=== PATIENT | male | born 1940 | race Caucasian/White ===

== ENCOUNTER → 2017-12-03 15:17 | Outpatient (CLI) | payer MEDICARE, SELFPAY ==
[2017-12-03 16:28] LABS: Add Manual Diff / Slide Review NO; Basophils Percent Auto 0.5 % (0-2); Hematocrit 39.7 % (41-53); Hemoglobin 13.4 g/dL (13.5-17.5); Lymphocytes Percent Auto 21.5 % (25-40); Mean Corpuscular HGB Conc 33.7 % (30-36); Mean Corpuscular Hemoglobin 28.9 PG (26-34); Mean Corpuscular Volume 85.7 fL (80-100); Monocytes Percent Auto 9.3 % (3-14); Neutrophils Absolute Auto 4500 /uL (3000-5900); Neutrophils Percent Auto 67.7 % (50-75); Platelet Count 293 X10^3/uL (150-400); Red Blood Cell Count 4.64 X10^6/uL (4.5-5.9); Red Cell Distribution Width 13.4 % (11.6-14.8); White Blood Cell Count 6.7 X10^3/uL (4.5-11.0)
[2017-12-03 16:40] LABS: Carbon Dioxide 28 mmol/L (22-32); Chloride 102 mmol/L (98-107); HEMOLYSIS < 15 (0-50); Potassium 4.6 mmol/L (3.4-5.1); Sodium 141 mmol/L (137-145)
== END ==
PROVIDERS: Family Provider Family Medicine; PCP Family Medicine; Visit Provider Orthopaedic Surgery
DX: M16.12 Unilateral primary osteoarthritis, left hip (principal); Z01.818 Encounter for other preprocedural examination; Z01.812 Encounter for preprocedural laboratory examination; I10 Essential (primary) hypertension
CPT/HCPCS: 36415; 80051; 85025; 93005; 93010

== ENCOUNTER 2017-12-17 08:03 | Inpatient (IN) | payer MEDICARE, SELFPAY ==
[2017-12-03 12:43] VITALS: BMI 26.9
[2017-12-17] VITALS (15 sets, daily range): BP systolic 109–163; BP diastolic 70–97; PULSE 70–93; RESP 12–20; TEMP 35.8–36.6; O2SAT 94–99; BMI 26.4
--- NOTE | 2017-12-17 06:00 | DI.RAD.S_ITS ---
PROCEDURE: XR PELVIS 1-2V INDICATIONS: prosthesis placement TECHNIQUE: Single view(s) of the pelvis acquired. COMPARISON: [facility] [place], [place], XR PELVIS WITH LATERAL HIP LEFT, 11/01/2017, 10:45. FINDINGS: Bones: Patient is status post interval left total hip arthroplasty. Alignment of left hip is anatomic. No fracture or dislocation is seen. Soft tissues: Skin pradeep are noted in lateral upper thigh/pelvis. No suspicious soft tissue lesion. IMPRESSION: Post left total hip arthroplasty changes with anatomic left hip alignment. Dictated by: Gregory Gordon M.D. on 12/17/2017 at 12:21 Approved by: rGegory Gordon M.D. on 12/17/2017 at 12:23
[2017-12-17] MEDS: ACETAMINOPHEN 325 MG TABLET 975 MG PO ×3 (08:37→21:07)
[2017-12-17] MEDS: CELECOXIB 200 MG CAPSULE PO (08:38)
[2017-12-17] MEDS: PREGABALIN 75 MG CAPSULE PO (08:38)
[2017-12-17] MEDS: LACTATED RINGERS 1,000 ML 42 ML IV ×2 (08:45→11:10)
--- NOTE | 2017-12-17 09:57 | PM.PREOP ---
Pre-operative Note Interval Note Pre-op Check: Yes History & Physical Reviewed by Physician Changes: No
[2017-12-17] MEDS: CEFAZOLIN 1 GM VIAL IV ×2 (10:00→10:40)
[2017-12-17] MEDS: TRANEXAMIC ACID 1,000 MG VIAL 1000 MG INJ ×2 (10:40→11:37)
[2017-12-17] MEDS: BUPIVACAINE 0.25% W/ EPI VIAL 50 ML INJ (10:50)
--- NOTE | 2017-12-17 11:02 | SUR.OPER ---
Lateral on padded OR bed. Gel axillary roll. Arms secured on padded armboard with pillow supporting top arm. Padded hip positioner braces x4 - anterior and posterior chest and pelvis. Additional gel pad used anterior pelvis. Gel pad under bottom leg from knee to foot and secured with tape over sheet.
--- NOTE | 2017-12-17 12:34 | SUR.PHASEI ---
reported patient off to Claudia RN/ Floor unable to take patient or report they will call back
--- NOTE | 2017-12-17 12:43 | SUR.PHASEI ---
report called to jessica Mike on acute care floor. pt in stable condition, vss. pt sititting up and eating ice chips and talking to rn. pt being transfered to acute care floor.
--- NOTE | 2017-12-17 14:15 | PM.OP.1 ---
Operative Date/Time/Diagnoses Date of procedure: 12/17/17 Time of procedure: 10:00 Pre-op diagnosis: Left hip degenerative joint disease Post-op diagnosis: same Procedure & Clinicians Procedure: Left total hip arthroplasty (CPT code 53710 with assistant head cashier) Same procedure as scheduled: Yes Indications: Patient is an 77-year-old male with severe left hip DJD. The patient has pain with activities and at rest, limited ambulation and activity tolerance, difficulties with ADLs, and failure of conservative treatment. We have discussed the nature of condition, treatment options, risks and benefits, and patient elects to proceed with total hip arthroplasty and gives informed consent. Surgeon: Krystian Rincon Program Arranger: Poly Levy Anesthesia Type: General and Spinal Operative Notes Closure Type: primary Specimen(s): none sent Implants & Drains: Acetabulum: Gu[employer]hew R3 acetabular component size 56 mm Femoral component: Gu[employer]hew Synergy stem size 14 with standard offset Femoral head: 36 mm + 0 cobalt chrome Estimated Blood Loss (mL): 100 Procedure in detail: After satisfaction induction of anesthetic, and administration of IV antibiotics, the patient was positioned in the lateral decubitus position with all bony prominences well padded and pelvic position secured using a hip rigging slinger positioning device. Left hip and lower extremity prepped and draped in the usual sterile fashion, 1st dose of intravenous tranexamic acid was administered, then a longitudinal incision was created centered over the greater trochanter and carried sharply through the skin and subcutaneous tissues down to the fascia gretchen which was divided longitudinally and retracted with a Charnley retractor. External rotators visualize, cut, tagged, and retracted posteriorly, then the capsule was cut in a T-type fashion with the corners tagged and retracted. Hip was dislocated and femoral neck cut made according to preoperative templating. Acetabular retractors then placed, and the acetabular labrum and osteophytes were excised. The acetabulum was then sequentially reamed to 55 mm with an excellent circumferential ream and fit with the trial. The trial component was removed and a permanent size 56 mm Guzman [employer]hew R3 acetabular component was selected, positioned, and impacted with satisfactory position and fixation achieved. Permanent liner was then inserted with the elevated lip directed posteriorly. Soft tissue then removed off the lateral femoral neck in the lateral neck was entered using a box osteotome. T-handled reamers placed down the canal followed by sequential broaching to 14 with the final broach left in place for trial reduction which demonstrated excellent leg length, range of motion, and stability characteristics with a 36 mm +0 trial ball. The trial and broach were removed, and a permanent size 14 Gu[employer]man [employer]hew Synergy stem was selected and inserted with excellent position and fixation achieved. Another trial reduction yielded the above characteristics so the trial ball was exchanged for a permanent 36 mm +0 cobalt chrome ball. The hip was irrigated and reduced and excellent leg length range of motion and stability characteristics were achieved and maintained. The hip was copiously irrigated, and the capsule repaired with #2 Ethibond, and the piriformis was repaired back to the greater trochanter with the same. Fascia gretchen closed with interrupted #1 Ethibond sutures, and the subcutaneous tissues were closed in 2 layers of 0 Vicryl and 2 0 Vicryl. Skin was closed with pradeep and sterile dressings applied. Second dose of tranexamic acid was administered intravenously, and the anesthetic was terminated. Complications: none Condition: stable Disposition: PACU Plan for aftercare: Patient will be admitted to the acute care [facility], and anticipate discharge on postop day 1 with follow-up in office in 10-14 days. Outpatient physical therapy will be arranged and patient will continue to observe posterior hip precautions. Patient will continue use of postoperative Lovenox for 10 days postop.
--- NOTE | 2017-12-17 14:19 | P.OP_ITS ---
Operative Date/Time/Diagnoses Date of procedure: 12/17/17 Time of procedure: 10:00 Pre-op diagnosis: Left hip degenerative joint disease Post-op diagnosis: same Procedure & Clinicians Procedure: Left total hip arthroplasty (CPT code 66423 with lead recreation assistant) Same procedure as scheduled: Yes Indications: Patient is an 77-year-old male with severe left hip DJD. The patient has pain with activities and at rest, limited ambulation and activity tolerance, difficulties with ADLs, and failure of conservative treatment. We have discussed the nature of condition, treatment options, risks and benefits, and patient elects to proceed with total hip arthroplasty and gives informed consent. Surgeon: Krystian Rincon Set Up Mechanic Coil Winding Machines: Poly Levy Anesthesia Type: General and Spinal Operative Notes Closure Type: primary Specimen(s): none sent Implants & Drains: Acetabulum: Gu[employer]hew R3 acetabular component size 56 mm Femoral component: Gu[employer]hew Synergy stem size 14 with standard offset Femoral head: 36 mm + 0 cobalt chrome Estimated Blood Loss (mL): 100 Procedure in detail: After satisfaction induction of anesthetic, and administration of IV antibiotics, the patient was positioned in the lateral decubitus position with all bony prominences well padded and pelvic position secured using a hip diving fisher positioning device. Left hip and lower extremity prepped and draped in the usual sterile fashion, 1st dose of intravenous tranexamic acid was administered, then a longitudinal incision was created centered over the greater trochanter and carried sharply through the skin and subcutaneous tissues down to the fascia gretchen which was divided longitudinally and retracted with a Charnley retractor. External rotators visualize, cut, tagged, and retracted posteriorly, then the capsule was cut in a T-type fashion with the corners tagged and retracted. Hip was dislocated and femoral neck cut made according to preoperative templating. Acetabular retractors then placed, and the acetabular labrum and osteophytes were excised. The acetabulum was then sequentially reamed to 55 mm with an excellent circumferential ream and fit with the trial. The trial component was removed and a permanent size 56 mm Guzman [employer] Nephew R3 acetabular component was selected, positioned, and impacted with satisfactory position and fixation achieved. Permanent liner was then inserted with the elevated lip directed posteriorly. Soft tissue then removed off the lateral femoral neck in the lateral neck was entered using a box osteotome. T-handled reamers placed down the canal followed by sequential broaching to 14 with the final broach left in place for trial reduction which demonstrated excellent leg length, range of motion, and stability characteristics with a 36 mm +0 trial ball. The trial and broach were removed, and a permanent size 14 Guzman [employer] Nephew Synergy stem was selected and inserted with excellent position and fixation achieved. Another trial reduction yielded the above characteristics so the trial ball was exchanged for a permanent 36 mm +0 cobalt chrome ball. The hip was irrigated and reduced and excellent leg length range of motion and stability characteristics were achieved and maintained. The hip was copiously irrigated, and the capsule repaired with # 2 Ethibond, and the piriformis was repaired back to the greater trochanter with the same. Fascia gretchen closed with interrupted #1 Ethibond sutures, and the subcutaneous tissues were closed in 2 layers of 0 Vicryl and 2 0 Vicryl. Skin was closed with pradeep and sterile dressings applied. Second dose of tranexamic acid was administered intravenously, and the anesthetic was terminated. Complications: none Condition: stable Disposition: PACU Plan for aftercare: Patient will be admitted to the acute care [facility], and anticipate discharge on postop day 1 with follow-up in office in 10-14 days. Outpatient physical therapy will be arranged and patient will continue to observe posterior hip precautions. Patient will continue use of postoperative Lovenox for 10 days postop.
[2017-12-17] MEDS: LACTATED RINGERS 1,000 ML 125 ML IV ×2 (14:25→21:08)
--- NOTE | 2017-12-17 15:43 | PC.NURSE ---
arrival pt arrived from PACU. denies pain. dressing is CDI. able to feel sensation on bilat feet however only able to wiggle toes on left foot, Right foot wouldn't move. pt started on juice and pudding and tolerated without issue. hourly rounding provided, call light within reach.
--- NOTE | 2017-12-17 17:09 | PT.IIE ---
Current Diagnoses Unilateral primary osteoarthritis, left hip (12/17/17) Surgery Performed Operation Date: 12/17/17 09:45 Actual Procedures p Total Hip Arthroplasty(Left) - Krystian Rincon MD Surgical History (Last Updated 12/03/17 @ 13:12 by Aminata Allen RN) History of vasectomy (Acute) Hx of hemorrhoidectomy (Acute) Hx of thumb surgery (Acute) Medical History (Last Updated 12/03/17 @ 13:12 by Aminata Allen RN) Elevated PSA (Acute) HTN (hypertension) (Acute) Hyperlipidemia (Acute) Numbness (Acute) Physical Therapy Inpatient Evaluation/Re-Eval M1 PT/OT-IP Prior Functional Status Start: 12/17/17 16:41 Freq: NEEDED Status: Active Protocol: Document 12/17/17 16:42 EA (Rec: 12/17/17 17:09 EA [id number]) Medical Review Prior Functional Status Medical History Reviewed Yes Communication Normal Mobility and Gait Able to ambulate 1/2 mile with STC to right hand indep. Activities of Daily Living and IADL's Indepedent Social History Household Members spouse Living Arrangements House Number of Floors (Floors) One Floor Number of Stairs To Enter/Railing? 2 steps to get in the house with rails to both sides Home Environment High Toilet Home Equipment Front Wheel Walker Straight Cane Raised Toilet Seat Without Armrests Employment Status Retired M2 PT-IP Current Condition Start: 12/17/17 16:41 Freq: NEEDED Status: Active Protocol: Document 12/17/17 16:42 EA (Rec: 12/17/17 17:09 EA [id number]) Physical Therapy Current Condition Current Condition Evaluation Date 12/17/17 Treatment Diagnosis S/P L SHERWIN 12/17/17 Onset Date 12/17/17 Precautions Posterior Hip Precautions No Hip Flexion > 90 degrees No Hip Internal Rotation No Hip Adduction Weight Bearing Status Weight Bearing Status Weight Bear as Tolerated M3 PT-IP Subjective Start: 12/17/17 16:41 Freq: NEEDED Status: Active Protocol: Document 12/17/17 16:42 EA (Rec: 12/17/17 17:09 EA [id number]) Subjective Physical Therapy Visit Type Type Initial Evaluation Visit Start Time 15:45 Visit Stop Time 16:30 Total Visit Minutes 45 Physical Therapy Visit Comments Patient Comments Patient agreeable to try chair transfers. Short Term Goals Wants to get indep prior to discharge tomorrow. Therapy Pain Assessment Pain When Pain Assessed At Rest Pain Present Pain Present Pain Reported Location Left Hip Scale Used Numeric (1 - 10) Description Acute Pain Behaviors Wincing Pain Management Techniques Apply Cold M4 PT-IP Mobility and Gait Start: 12/17/17 16:41 Freq: NEEDED Status: Active Protocol: Document 12/17/17 16:42 EA (Rec: 12/17/17 17:09 EA [id number]) PT-Bed Mobility Assessment Rolling Level of Assist Standby Assistance Supine to Sit Supine to Sit Standby Assistance Sit to Supine Sit to Supine Standby Assistance Scooting Scooting to Edge of Bed Standby Assistance PT-Transfer Assessment Sit to and From Stand Sit to and from Stand Contact Guard Assistance Equipment Transfer Assistive Device Front Wheeled Walker Transfers Transfer Destination Bed Chair Bedside Commode Transfer Technique stepping Transfer Ability Level of Assist Contact Guard Assistance Gait Assessment Gait Gait Assistance Required: Standby Assistance Able to Maintain Weight Bearing Status Yes During Gait Assistive Devices Assistive Device Front Wheeled Walker Gait Deviations General Gait Pattern Antalgic Factors Limiting Gait Function Factors Limiting Gait Function Decreased Strength Pain Comments Gait Comments Requires cues for foot placement during turning. Patient able to amb > 10 ft with FWW with SBA/CGA PT-Balance Assessment Sitting Balance and Reactions Static Sitting Balance Ability Normal Dynamic Sitting Balance Ability Normal Standing Balance and Reactions Static Standing Balance Ability Good Dynamic Standing Balance Ability Good M5 PT-IP Objective Assessments Start: 12/17/17 16:41 Freq: NEEDED Status: Active Protocol: Document 12/17/17 16:42 EA (Rec: 12/17/17 17:09 EA [id number]) Orientation Orientation/Cognition Level of Alertness Alert Orientation Name Birthday Month Year Day of Week Language Function Ability No Deficits Noted Safety Awareness Understands Safety Issues Memory Description No Deficits Noted Gross Range of Motion Upper Extremity ROM Assessment Within Functional Limits Lower Extremity ROM Assessment Within Functional Limits Impairments Left hip not assess due to hip pre-cautions Strength Upper Extremity Strength Assessment Within Functional Limits Lower Extremity Strength Assessment Within Functional Limits Hip Not tested due to precaution but with at least 3/5 Coordination Assessment Gross Coordination Gross Coordination WNL Assessment Finger to Nose Test Normal Performance Pronation/Supination Test Normal Performance Foot Tapping Test Normal Performance Sensation Assessment Sensation Gross Sensation WNL M6 PT-IP Treatment Start: 12/17/17 16:41 Freq: NEEDED Status: Active Protocol: Document 12/17/17 16:42 EA (Rec: 12/17/17 17:09 EA [id number]) Physical Therapy Treatment Exercises Exercises Ankle Pumps Gluteal Sets Quad Sets Heel Slides Supine Hip Abduction Education Education Provided Precautions Weight Bearing Status Post-Op Packet Safety M7 PT-IP Assessment and Plan Start: 12/17/17 16:41 Freq: NEEDED Status: Active Protocol: Document 12/17/17 16:42 EA (Rec: 12/17/17 17:09 EA [id number]) PT Summary Assessment and Plan Potential Rehabilitation Potential Excellent Status of Condition at Evaluation Stable Summary Impairments Pain Strength Bed Mobility Transfers Gait Activity Tolerance Assessment Summary Patient exhibits decreased activity tolerance which maybe due to pain and LLE weakness, however demonstrates good dynamic balance. Patient requires CGA/standby assist during transfers and mobility for safety at this time. Patient to perform distance amb and stairs practice prior discharge tomorrow or when medically stable. Goals Bed Mobility Goal Independent Transfer Goal Independent Gait Goal Independent Gait Distance 50 ft Days to Meet Goals 1 Frequency of Treatment Frequency Of Treatment Once a Day Treatment Plan Physical Therapy Treatment Plan Bed Mobility Training Transfer Training Gait Training Therapeutic Exercise Post Op Education Discharge Planning Recommendations To Nursing Amount of Assist Needed Standby Assistance Discharge Recommendations PT Discharge Recommendations Home with Assistance Other Discharge Recommendations OP Physical therapy
[2017-12-17] MEDS: ASPIRIN EC 81 MG TABLET PO (21:07)
--- NOTE | 2017-12-18 01:26 | PC.NURSE ---
Pt. reporting ' I've been getting up almost every 15 mins. to urinate. Denies any nausea & drinking his water, VSS. Stopped IVF & saline locked IV. Will monitor.
[2017-12-18] MEDS: HYDROCODONE/ACET 5/325 TABLET 1 TAB PO ×3 (04:55→20:27)
[2017-12-18 05:05] VITALS: BP 161/93; PULSE 88; RESP 18; TEMP 36.8; O2SAT 97
[2017-12-18 05:19] LABS: Hematocrit 36.1 % (41-53); Hemoglobin 12.4 g/dL (13.5-17.5)
--- NOTE | 2017-12-18 06:53 | PC.NURSE ---
Pt. reported my Rt. hip is not that painful, but it's hurts really bad to urinate. Noted earlier he already voided 800 cc since beginning this shift. Bladder scanned noted 472 ml. in the bladder. Encouraged to urinate, he ambulated in the BR. did well ambulating to the BR. He's sitting in the toilet @ this time. Will monitor.
[2017-12-18 07:25] VITALS: BP 155/105; PULSE 91; RESP 16; TEMP 36.7; O2SAT 98
--- NOTE | 2017-12-18 07:29 | PC.NURSE ---
Reported to day RN,pt C/O painful urination & was able to void this morning. Bladder scanned 472 cc. Day RN states I'll take care of him. pt. informed.
--- NOTE | 2017-12-18 09:10 | CM.DANOTE ---
DCP: Case received, EMR reviewed and met with patient. Introduced self and role. DCP template completed with information currently available. Patient is a 77 year old male who admitted yesterday morning to the care of the hospitalist team. PCP: Dr. Krishna. Payer: confirmed: Medicare/[employer]. Patient came to hospital for left total hip arthroplasty. Patient pleasant, alert and oriented. Lives in [place] with his spouse in [place]. Patient has been active, avid walker with friends. Patient also has outpatient physical therapy already set up here in town. P: DCP to continue to assess. Goal is for patient to go home with outpatient physical therapy. Yaa Osullivan RN/Asbestos Removal Worker
[2017-12-18] MEDS: ENOXAPARIN 40 MG/0.4 ML SYRINGE SUBCUT (09:30)
[2017-12-18] MEDS: ASPIRIN EC 81 MG TABLET PO ×2 (09:30→20:27)
[2017-12-18] MEDS: ACETAMINOPHEN 325 MG TABLET 975 MG PO ×2 (09:30→20:28)
[2017-12-18] MEDS: SODIUM CHLORIDE 0.9% FLUSH 10 ML IV ×2 (09:31→20:29)
[2017-12-18] MEDS: FINASTERIDE 5 MG TABLET PO (11:08)
--- NOTE | 2017-12-18 13:14 | PM.PN.1 ---
Subjective Date Patient Seen: 12/18/17 Time Patient Seen: 11:14 Interval history: Patient is status post left total hip replacement by Dr. Rinocn. Postop day 1. Nursing duties states that he is having difficulty urinating and he was straight catheterized with about 400 cc. He was able to urinate this morning about 100 cc. He is going to have a bladder scan this morning to see if there is any residual urine. Home med of finasteride was not ordered. Only taking hydrocodone as needed for pain. Is a [facility] patient and has his d/c meds already except for Lovenox. Eating and drinking well. Plan is to be discharged home when cleared by Physical therapy and able to urinate. Exam Vital Signs (past 8 hours): - 12/18/17 07:25 Temperature 98.1 F Pulse Rate 91 H Respiratory Rate 16 Blood Pressure 155/105 H Pulse Oximetry 98 Oxygen Delivery Method Room Air Narrative Exam Narrative: Patient is sitting in chair. Comfortable. Alert orient x3. Left hip dressing clean dry and intact. Moderate swelling left anterior thigh. Bilateral calves soft and nontender. 5/5 left ankle strength. Neurovascular status intact. Objective Labs Result Diagrams: 12/18/17 04:54 Labs: Laboratory Results - last 24 hr 12/18/17 04:54 Hgb 12.4 L Hct 36.1 L Assessment & Plan (1) Osteoarthritis of left hip: Problem details: Postop day 1. Status post left total hip arthroplasty by Dr. Rincon. Continue physical therapy. Continue posterior hip precautions. Continue DVT prophylaxis with Lovenox. Anticipate discharge home tomorrow if his urinary retention resolved. Current visit: Yes Status: Acute (2) Urinary retention: Problem details: Bladder scan revealed about 400 cc of fluid. Patient will be catheterized. Home med of finasteride ordered. Current visit: Yes Status: Acute Quality VTE Deep Vein Thrombosis/Pulmonary Embolism Present on Admission: No
[2017-12-18 14:05] VITALS: BP 131/76; PULSE 97; RESP 16; TEMP 36.6; O2SAT 97
--- NOTE | 2017-12-18 14:14 | CM.DPC ---
DCP Cont: Patient remains NPO status with NG tube in place. Surgeon is hopeful that bowel obstruction will resolve without surgery, but if not, may need laparotomy, as well as PICC line for TPN. P: DCP to continue to assess. Goal is for patient to return home. Yaa Osullivan RN/Dance Professor
--- NOTE | 2017-12-18 14:48 | PC.NURSE ---
day shift. per NOC shift, bladder scan of ~470 ml. order to straight cath pt if >400. in and out cath for pt and obtained ~1000ml of giovanny urine. pt stated he felt better after cath. was able to urinate several times throughout remainder of shift, all around 100 ml each time. bladder scan 2x during shift for PVR and first was 560ml. second was 314 ml. pt never felt uncomfortable or had pain r/t to urination like in AM. Did not insert cabrera as pt was able to urinate, just not empty his bladder. Attempted to contact PA, awaiting call back. dressing changed to coversite dressing per order. hourly rounding provided, call light within reach.
[2017-12-18 15:39] VITALS: BP 122/73; PULSE 92; RESP 18; TEMP 36.6; O2SAT 97
--- NOTE | 2017-12-18 15:45 | PT.IPTN ---
Current Diagnoses Unilateral primary osteoarthritis, left hip (12/17/17) Retention of urine, unspecified (12/17/17) Surgery Performed Operation Date: 12/17/17 09:45 Actual Procedures p Total Hip Arthroplasty(Left) - Krystian Rincon MD Physical Therapy Treatment Note Physical Therapy Current Condition Current Condition Evaluation Date 12/17/17 Treatment Diagnosis S/P L SHERWIN 12/17/17 Onset Date 12/17/17 Precautions Posterior Hip Precautions No Hip Flexion > 90 degrees No Hip Internal Rotation No Hip Adduction Weight Bearing Status Weight Bearing Status Weight Bear as Tolerated Subjective Physical Therapy Visit Type Type Treatment Note Visit Start Time 13:58 Visit Stop Time 14:41 Total Visit Minutes 43 Physical Therapy Visit Comments Patient Comments Pt reports feeling really good , but wants to wait until tomorrow to go home do to urinary concerns. Therapy Pain Assessment Pain Present Pain Present Denied Pain PT-Transfer Assessment Sit to and From Stand Sit to and from Stand Standby Assistance Equipment Transfer Assistive Device Front Wheeled Walker Transfers Transfer Destination Chair Wheelchair Transfer Technique stepping Transfer Ability Level of Assist Standby Assistance Gait Assessment Gait Gait Assistance Required: Standby Assistance Distance (Feet) (feet) 200 Assistive Devices Assistive Device Front Wheeled Walker Gait Deviations General Gait Pattern Antalgic Comments Gait Comments Initially pt using step-to gait pattern, but with cues pt able to utilize a reciprocal pattern. Still antalgic. Pt lands quite supinated on the R foot, but this is normal for him. No LOB or instability observed. Stair Climbing Assessment Evaluation Level of Assist On Stairs Standby Assistance Devices Stair Climbing Assistive Devices Left Railing Right Railing Technique/Endurance Stair Climbing Direction Ascend and Descend Stair Climbing Technique Step to Step Number of Steps Climbed 3 Query Text: Comments Stair Climbing Comments quite stable, no concerns PT-Balance Assessment Standing Balance and Reactions Device Used FWW Orientation Orientation/Cognition Level of Alertness Alert Orientation Name Birthday Month Year Day of Week Language Function Ability No Deficits Noted Safety Awareness Understands Safety Issues Memory Description No Deficits Noted Gross Range of Motion Upper Extremity ROM Assessment Within Functional Limits Lower Extremity ROM Assessment Within Functional Limits Impairments Left hip not assess due to hip pre-cautions Strength Upper Extremity Strength Assessment Within Functional Limits Lower Extremity Strength Assessment Within Functional Limits Hip Not tested due to precaution but with at least 3/5 Coordination Assessment Gross Coordination Gross Coordination WNL Assessment Finger to Nose Test Normal Performance Pronation/Supination Test Normal Performance Foot Tapping Test Normal Performance Sensation Assessment Sensation Gross Sensation WNL Physical Therapy Treatment Exercises Exercises Ankle Pumps Gluteal Sets Quad Sets Heel Slides Supine Hip Abduction Education Education Provided Precautions Weight Bearing Status Post-Op Packet Safety PT Summary Assessment and Plan Potential Rehabilitation Potential Excellent Status of Condition at Evaluation Stable Summary Impairments Pain Strength Bed Mobility Transfers Gait Activity Tolerance Progress Towards Goals Progressing Toward Goals Assessment Summary Pt is POD#1 after L posterior SHERWIN. Pt is SBA (almost mod ind ) with all mobility. Pt would be ready to discharge today from a mobility standpoint but will be staying until tomorrow for medical reasons. Pt is a little impulsive with movement but very stable without any LOB. Pt is safe to discharge home once medically ready with outpatient PT. Goals Bed Mobility Goal Independent Transfer Goal Independent Gait Goal Independent Gait Distance 50 ft Days to Meet Goals 1 Frequency of Treatment Frequency Of Treatment Twice a Day Treatment Plan Physical Therapy Treatment Plan Bed Mobility Training Transfer Training Gait Training Therapeutic Exercise Post Op Education Discharge Planning Recommendations To Nursing Amount of Assist Needed Standby Assistance Discharge Recommendations PT Discharge Recommendations Home with Assistance Outpatient PT
[2017-12-18 19:47] VITALS: BP 145/79; PULSE 96; RESP 18; TEMP 37.1; O2SAT 97
[2017-12-18 23:00] VITALS: BP 152/83; PULSE 79; RESP 16; TEMP 36.4; O2SAT 97
[2017-12-19] MEDS: HYDROCODONE/ACET 5/325 TABLET 1 TAB PO ×3 (01:02→10:03)
[2017-12-19 06:06] VITALS: BP 155/61; PULSE 75; RESP 16; TEMP 36.6; O2SAT 98
[2017-12-19 07:00] VITALS: BP 134/84; PULSE 76; RESP 16; TEMP 36.6; O2SAT 98
--- NOTE | 2017-12-19 08:10 | P.DS_ITS ---
History of Present Illness Date Patient Seen: 12/19/17 Time Patient Seen: 08:03 Chief complaint: [id number] LEFT TOTAL HIP ARTHROPLASTY Narrative: Details of the patient's H&P can be found in the electronic chart. Discharge Providers Date of admission: 12/17/17 08:03 Primary care physician: Tito Krishna MD Consults: 12/17/17 13:33 Consult to Discharge Planning Routine Comment: Consult to Physical Therapy Evaluate & Treat Comment: Physician Instructions: post op SHERWIN protocol Consult to Respiratory Therapy Evaluate & Treat Comment: Physician Instructions: Evaluate and treat Discharge provider: Shirley Ferguson PA-C Summary Discharge Diagnosis: Left hip osteoarthritis Urinary retention Hospital Course: Patient was admitted and taken operating room where had a left total hip arthroplasty by Dr. Rincon. He recovered well and was transferred to the floor for further care. Postop day 1 patient was having problems with urination and had a in/out catheter. A bladder scan showed about 400cc fluid and a catheter was placed and his home medication of finasteride was ordered. He has a history of benign prostatic hypertrophy. By postop day 2. His Agustin was removed and he was urinating without difficulty. He was also ambulating well and pain was under control. He was ready to be discharged home. He is a [facility] patient and has his post op pain meidcation already, [place] 5 mg. He will be given a prescription for Lovenox 40 mg her to take for 8 days. Outpatient physical therapy has been set up as scheduled or [facility] on 20 history. He will follow up in the office in a few days for his 1st postop visit. Status at Discharge Cognitive/behavioral status at discharge: Alert and orient times Functional status at discharge: uses cane/walker Overall status at discharge: patient is progressing back to baseline Time Spent with Patient Less than 30 minutes Exam Vital Signs (past 8 hours): - 12/19/17 06:06 Temperature 97.9 F Pulse Rate 75 Respiratory Rate 16 Blood Pressure 155/61 H Pulse Oximetry 98 Oxygen Delivery Method Room Air Narrative Exam Narrative: Patient in bed. Appears comfortable. Alert and orient x3. Left hip dressing clean dry intact. Moderate swelling in the left thigh. Bilateral calves soft and nontender. 5/5 left ankle strength. Neurovascular status intact. Objective Labs Result Diagrams: 12/18/17 04:54 Discharge Plan Discharge Plan Patient Disposition: Home Discharge comment: Start physical therapy as soon as possible. Take Lovenox daily for 8 days then start aspirin 81 mg daily. Not take more than 4000 mg of Tylenol per day from all sources. Discharge Med Rec/Prescriptions Prescriptions: New acetaminophen 325 mg Tablet 650 mg PO DAILY Qty: 60 RF: 0 hydrocodone-acetaminophen 5-325 mg Tablet 1 tab PO Q4HR PRN (Reason: Pain, Moderate (4-6)) Qty: 60 RF: 0 enoxaparin [Lovenox] 40 mg/0.4 mL Syringe 40 mg subcut DAILY 8 Days RF: 0 Continue atorvastatin 40 mg Tablet 40 mg PO BEDTIME RF: 0 finasteride 5 mg Tablet 5 mg PO QAM RF: 0 Discontinued naproxen sodium [Aleve] 220 mg Capsule 440 mg PO BID RF: 0 Follow up/Referrals: Tito Krishna MD [Primary Care Provider] - Krystian Rincon MD [Physician] - (Follow-up at scheduled visit. Contact office with any issues or concerns.) Provider Discharge Instructions Diet: Diet as Tolerated Activity: Activity as tolerated. Posterior hip precautions. Ambulate with assistance of a walker/cane. Cold/Heat Therapy: Apply ice to the extremity as needed for inflammation and pain. Skin/Wound/Dressing Care Report to your healthcare provider any signs of infection, such as:: chills, fever, increased pain and unusual drainage Dressing: Keep dressing clean, dry and intact. Visit Report/Discharge Packet Instructions: DI for Hip Replacement, DI for Constipation, Enoxaparin Injection Visit Report Forms: Stroke Signs & Symptoms Discharge Data Primary Care Provider: Tito Krishna Attending Provider: Krystian Rincon Admit Date/Time: 12/17/17 08:03 Quality VTE Deep Vein Thrombosis/Pulmonary Embolism Present on Admission: No
--- NOTE | 2017-12-19 09:25 | PT.IPTN ---
Current Diagnoses Unilateral primary osteoarthritis, left hip (12/17/17) Retention of urine, unspecified (12/17/17) Surgery Performed Operation Date: 12/17/17 09:45 Actual Procedures p Total Hip Arthroplasty(Left) - Krystian Rincon MD Physical Therapy Treatment Note M2 PT-IP Current Condition Start: 12/17/17 16:41 Freq: NEEDED Status: Active Protocol: Document 12/17/17 16:42 EA (Rec: 12/17/17 17:09 EA [id number]) Physical Therapy Current Condition Current Condition Evaluation Date 12/17/17 Treatment Diagnosis S/P L SHERWIN 12/17/17 Onset Date 12/17/17 Precautions Posterior Hip Precautions No Hip Flexion > 90 degrees No Hip Internal Rotation No Hip Adduction Weight Bearing Status Weight Bearing Status Weight Bear as Tolerated M3 PT-IP Subjective Start: 12/17/17 16:41 Freq: NEEDED Status: Active Protocol: Document 12/19/17 09:25 GGD (Rec: 12/19/17 12:21 GGD [id number]) Subjective Physical Therapy Visit Type Type Treatment Note Visit Start Time 08:55 Visit Stop Time 09:25 Total Visit Minutes 30 Physical Therapy Visit Comments Patient Comments Pt states he feels ready to go home. Therapy Pain Assessment Pain When Pain Assessed At Rest Pain Present Pain Present Denied Pain M4 PT-IP Mobility and Gait Start: 12/17/17 16:41 Freq: NEEDED Status: Active Protocol: Document 12/19/17 09:25 GGD (Rec: 12/19/17 12:21 GGD [id number]) PT-Transfer Assessment Sit to and From Stand Sit to and from Stand Standby Assistance Use of Upper Extremities Equipment Transfer Assistive Device Front Wheeled Walker Transfers Transfer Destination Chair Gait Assessment Gait Gait Assistance Required: Standby Assistance Distance (Feet) (feet) 220 Assistive Devices Assistive Device Front Wheeled Walker Gait Deviations General Gait Pattern Antalgic Factors Limiting Gait Function Factors Limiting Gait Function Decreased Strength Limited Range of Motion Pain M5 PT-IP Objective Assessments Start: 12/17/17 16:41 Freq: NEEDED Status: Active Protocol: Document 12/17/17 16:42 EA (Rec: 12/17/17 17:09 EA [id number]) Orientation Orientation/Cognition Level of Alertness Alert Orientation Name Birthday Month Year Day of Week Language Function Ability No Deficits Noted Safety Awareness Understands Safety Issues Memory Description No Deficits Noted Gross Range of Motion Upper Extremity ROM Assessment Within Functional Limits Lower Extremity ROM Assessment Within Functional Limits Impairments Left hip not assess due to hip pre-cautions Strength Upper Extremity Strength Assessment Within Functional Limits Lower Extremity Strength Assessment Within Functional Limits Hip Not tested due to precaution but with at least 3/5 Coordination Assessment Gross Coordination Gross Coordination WNL Assessment Finger to Nose Test Normal Performance Pronation/Supination Test Normal Performance Foot Tapping Test Normal Performance Sensation Assessment Sensation Gross Sensation WNL M6 PT-IP Treatment Start: 12/17/17 16:41 Freq: NEEDED Status: Active Protocol: Document 12/19/17 09:25 GGD (Rec: 12/19/17 12:21 GGD [id number]) Physical Therapy Treatment Exercises Exercises Ankle Pumps Gluteal Sets Quad Sets Education Education Provided Precautions M7 PT-IP Assessment and Plan Start: 12/17/17 16:41 Freq: NEEDED Status: Active Protocol: Document 12/19/17 09:25 GGD (Rec: 12/19/17 12:21 GGD [id number]) PT Summary Assessment and Plan Summary Assessment Summary Pt improving with mobility. He was safe and stable with no LOB during gait. He demonstrated good understanding of hip precaurtions. Frequency of Treatment Frequency Of Treatment Twice a Day Treatment Plan Physical Therapy Treatment Plan Bed Mobility Training Transfer Training Gait Training Therapeutic Exercise Post Op Education Discharge Planning Recommendations To Nursing Amount of Assist Needed Standby Assistance Discharge Recommendations PT Discharge Recommendations Home with Assistance Outpatient PT
[2017-12-19] MEDS: ACETAMINOPHEN 325 MG TABLET 975 MG PO (10:02)
[2017-12-19] MEDS: ASPIRIN EC 81 MG TABLET PO (10:03)
[2017-12-19] MEDS: ENOXAPARIN 40 MG/0.4 ML SYRINGE SUBCUT (10:03)
[2017-12-19] MEDS: FINASTERIDE 5 MG TABLET PO (10:03)
--- NOTE | 2017-12-19 12:48 | PC.NURSE ---
Discharge: Feels ready to d/c home today. Po pain meds effective and already has rx at home. Lovenox teaching given. Pt injected his lovenox using correct tech. Discussed site rotation and sharps disposal. Questions answered. Spouse also had lovenox after her surgery's and she is able to help pt in case he needs some. PT here to see patient and they have given him their final instructions. PA here and she reviewed discharge information as well with patient. Questions answered. Pt d/c home via auto w/spouse.
== END 2017-12-19 10:30 | disposition home or self-care (01) | DRG 470 ==
PROVIDERS: Admitting Provider Orthopaedic Surgery; Family Provider Family Medicine; PCP Family Medicine; Visit Provider Orthopaedic Surgery
PROC: 0SRB0JZ Replacement of Left Hip Joint with Synthetic Substitute, Open Approach (ICD-10-PCS; CPT 27130; principal; 2017-12-17 09:45)
DX: M16.12 Unilateral primary osteoarthritis, left hip (principal); E78.5 Hyperlipidemia, unspecified; R33.9 Retention of urine, unspecified; N40.1 Benign prostatic hyperplasia with lower urinary tract symptoms
CPT/HCPCS: 36415; 72170; 85014; 85018; 97116; 97161; 97530; 97535; C1776; J0690; J1650; J2250; J2704; J3010

== ENCOUNTER → 2018-05-20 12:39 | Outpatient (CLI) | payer MEDICARE, SELFPAY ==
[2017-12-17 14:11] VITALS: BMI 26.4
--- NOTE | 2018-05-20 | DI.RAD.S_ITS ---
PROCEDURE: XR CHEST 2V INDICATIONS: COUGH TECHNIQUE: 2 views of the chest were acquired. COMPARISON: None. FINDINGS: Surgical changes and devices: None. Lungs and pleura: Lungs are clear. No pleural effusions or pneumothorax. Mediastinum: Mediastinal contours are normal. Heart size is normal. Bones and chest wall: No suspicious bony abnormalities. Soft tissues appear unremarkable. IMPRESSION: Normal for age, source of current cough symptoms is not seen. Dictated by: Clarke Mercedes M.D. on 05/20/2018 at 13:43 Approved by: Clarke Mercedes M.D. on 05/20/2018 at 13:44
== END ==
PROVIDERS: Family Provider Family Medicine; PCP Family Medicine; Visit Provider Family Medicine
DX: R05 Cough (principal)
CPT/HCPCS: 71046

== ENCOUNTER 2020-10-29 11:54 | Emergency (ER) | payer MEDICARE, SELFPAY ==
[2017-12-17 14:11] VITALS: BMI 26.4
[2020-10-29 11:57] VITALS: BP 180/86; PULSE 67; RESP 14; TEMP 36.6; O2SAT 97; BMI 26.6
--- NOTE | 2020-10-29 11:59 | DI.RAD.S_ITS ---
PROCEDURE: XR WRIST RT MIN 3V INDICATIONS: wrist injury TECHNIQUE: 4 views of the wrist were acquired. COMPARISON: None. FINDINGS: Bones: There is a comminuted intra-articular fracture distal radius with mild posterior angulation and displacement. Scaphoid view: No visualized scaphoid fracture. Soft tissues: No suspicious soft tissue calcifications. IMPRESSION: Comminuted intra-articular distal radial fracture as above. Dictated by: Flora Gupta M.D. on 10/29/2020 at 12:23 Approved by: Flora Gupta M.D. on 10/29/2020 at 12:24
--- NOTE | 2020-10-29 13:15 | ED.UPPEXIN ---
HPI - Extremity Injury (Upper) General Chief Complaint: Extremity Injury, Upper Stated Complaint: fall/right wrist fracture Time Seen by Provider: 10/29/20 13:11 Source: patient Mode of arrival: Ambulatory Limitations: no limitations History of Present Illness HPI narrative: 79M nonsmoker with noncontributory medical history presents with is and the chief complaint of a ground level mechanical fall just prior to arrival with right wrist pain and injury. He is activated as a modified trauma given his age greater than 65 and suspected injury. He denies any head neck or back pain. He denies any shoulder or elbow pain. He denies any numbness, tingling or weakness. He states that he was pulling a garbage can and got his feet caught up on the curb and fell onto an outstretched wrist suffering the injury as stated. He denies any chest pain or shortness of breath or any other prodromal symptoms. He is right-hand dominant Related Data Home Medications Medication Instructions Recorded Confirmed finasteride 5 mg tablet 5 mg PO QAM 12/03/17 03/31/20 pravastatin 40 mg tablet 40 mg PO BEDTIME 03/31/20 03/31/20 Previous Rx's Medication Instructions Recorded acetaminophen 325 mg tablet 650 mg PO DAILY #60 tab 12/18/17 Allergies Allergy/AdvReac Type Severity Reaction Status Date / Time No Known Drug Allergies Allergy Verified 10/29/20 11:57 Review of Systems Review of Systems Narrative: GENERAL: Denies chills, fatigue, malaise, fever, sweats. HEENT: Denies sinus pain, ear pain, sore throat, difficulty swallowing, dizziness. RESPIRATORY: Denies dyspnea, cough, wheezing, hemoptysis, sputum. CARDIOVASCULAR: Denies chest pain, palpitations, orthopnea, edema, GASTROINTESTINAL: Denies nausea, vomiting, abdominal pain, diarrhea, constipation, melena. : Denies dysuria, frequency, incontinence, hematuria, urinary retention. MUSCULOSKELETAL: See HPI SKIN: Denies rash, skin lesions, or other NEUROLOGIC: Denies weakness, headache, numbness, change in speech, confusion, seizures, incoordination. PSYCHIATRIC: No concerning psychosocial issues. 12 point review of systems is negative except for those stated above Patient History Medical History Bleeding external hemorrhoids Elevated PSA HTN (hypertension) Hyperlipidemia Numbness Osteoarthritis of left hip Urinary retention Surgical History History of vasectomy Hx of hemorrhoidectomy Hx of thumb surgery Family History Father CAD (coronary artery disease) Social History household members: spouse Smoking Status: Never smoker alcohol intake: current Smoking Status: Never smoker alcohol intake frequency: holidays/special occasions only Substance Use Type: does not use Exam Narrative Exam Narrative: GEN: AOx3 and in mild distress, GCS 15 EYES: Pupils are equal, round, and reactive to light and accommodation. Extraoccular muscles are intact bilaterally. There is no subconjunctival hemorrhage or exudate. CHEST: Lungs are clear to auscultation bilaterally and free of wheezes, rales, or rhonchi. Heart rate is regular rhythm, there are no murmurs, clicks, rubs, or gallops. There is no chest wall tenderness. ABD: Abdomen is soft and nontender. There is no guarding or rebound. Bowel sounds are normal in all 4 quadrants. There is no mass or organomegaly. EXT: Full painless range of motion of right shoulder and elbow. There is minimal swelling and tenderness to palpation of the distal radius and decreased range of motion associated with this pain. This is closed, isolated and neurovascularly intact SKIN: Warm, pink, and dry. No erythema or rash Initial Vital Signs Initial Vital Signs: Vital Signs Temperature 97.8 F 10/29/20 11:57 Pulse Rate 67 10/29/20 11:57 Respiratory Rate 14 10/29/20 11:57 Blood Pressure 180/86 H 10/29/20 11:57 Pulse Oximetry 97 10/29/20 11:57 Procedures Orthopedic Splinting/Casting Injury #1: Time of procedure: 13:28 Side: right Upper Extremity Injury Location: wrist Upper Extremity Immobilizer: sling/shoulder immobilizer and sugar tong splint Course Orders Ordered: ED Orders 10/29/20 11:59 XR wrist RT min 3V Stat Vital Signs Vital signs: Vital Signs - 8 hr 10/29/20 11:57 Temperature 97.8 F Pulse Rate 67 Respiratory Rate 14 Blood Pressure 180/86 H Pulse Oximetry 97 MDM - Extremity Injury (Upper) Imaging Data Extremity x-ray #1: Radiologist's Impression: Maynor Barnes 79 M [address] [id number] ReportSigned Patient: Maynor Barnes GMR#: [id number]: 1940cct:[id number]/Sex: 79 / MDate of Service: 10/29/20Loc: EDAccession Number: [id number] Procedure: XR wrist RT min 3V Ordering Provider: Krysten Melendrez D.O. PROCEDURE: XR WRIST RT MIN 3V INDICATIONS: wrist injury TECHNIQUE: 4 views of the wrist were acquired. COMPARISON: None. FINDINGS: Bones: There is a comminuted intra-articular fracture distal radius with mild posterior angulation and displacement. Scaphoid view: No visualized scaphoid fracture. Soft tissues: No suspicious soft tissue calcifications. IMPRESSION: Comminuted intra-articular distal radial fracture as above. Dictated by: Flora Gupta M.D. on 10/29/2020 at 12:23 Approved by: Flora Gupta M.D. on 10/29/2020 at 12:24 [facility] Narrative Medical decision making narrative: Patient with ground level mechanical fall and isolated orthopedic injury. There is comminution and minimal angulation, we did have a discussion about the potential gains from procedural sedation and attempt at reduction and sure the opinion that little is likely to be gained. He has been given return precautions regarding signs and symptoms that would dictate return. He and event questions answered to their apparent satisfaction. Discharge Plan Departure Patient Disposition: Home Clinical Impression: Distal radius fracture, right Qualifiers: Encounter type: initial encounter Fracture type: closed Fracture morphology: unspecified fracture morphology Qualified Code(s): S52.501A - Unspecified fracture of the lower end of right radius, initial encounter for closed fracture Instructions: DI for Wrist Fracture Activity Restrictions/Additional Instructions: *You have been diagnosed with [fracture distal radius] *What to do: *Please continue to take your regular medications as directed. [ ] New medication prescriptions sent to your pharmacy: [ ] [ ] New medication written as a paper prescription [x] Tylenol and occasional Motrin for pain *Please follow up with Dr. Shira Rowe] of [facility] in 2-3 days, call for an appointment. Let them know you were seen in the Emergency Department and that we ask that you be seen in follow up. We will electronically transmit a record of today's note if your PCP is in our system *Return to Emergency Department if you should have any new, worsening or concerning symptoms, such as [worsening pain, significant swelling, cold extremities, numbness, tingling, weakness or other bothersome symptoms Splint Care: Keep splint clean and dry. Elevated affected body part to decrease swelling. OK to use ice pack on the affected body part. Use for 15-20 minutes each time, for 5-6x per day. If you develop worsening pain, numbness, tingling, discoloration of the affected body part, loosen the splint by loosening the FELY wrap, and either see your doctor for an urgent re-assessment, or return to the Emergency Department. Return to the Emergency Department for any new or worsening symptoms. Prescriptions: No Action pravastatin 40 mg tablet 40 mg PO BEDTIME RF: 0 finasteride 5 mg Tablet 5 mg PO QAM RF: 0 acetaminophen 325 mg Tablet 650 mg PO DAILY Qty: 60 RF: 0 Referrals: Jennifer Rowe MD [Physician] - Chau Damon MD [Primary Care Provider] -
== END 2020-10-29 13:42 | disposition home or self-care (01) ==
PROVIDERS: Emergency Provider Emergency Medicine; PCP Family Medicine
DX: S52.501A Unspecified fracture of the lower end of right radius, initial encounter for closed fracture (principal); W19.XXXA Unspecified fall, initial encounter
CPT/HCPCS: 73110; 99283

== ENCOUNTER → 2021-08-16 08:04 | Outpatient (CLI) | payer MEDICARE, SELFPAY ==
[2017-12-17 14:11] VITALS: BMI 26.4
[2021-08-16 09:14] LABS: Add Manual Diff / Slide Review NO; Basophils Absolute Auto 0 /uL (0-100); Basophils Percent Auto 0.4 % (0-2); Eosinophils Absolute Auto 100 /uL (0-450); Eosinophils Percent Auto 1.7 % (2-4); Hemoglobin 13.7 g/dL (13.5-17.5); Lymphocytes Absolute Auto 1500 /uL (1100-4500); Lymphocytes Percent Auto 30.5 % (25-40); Mean Corpuscular HGB Conc 33.5 % (30-36); Mean Corpuscular Hemoglobin 28.9 PG (26-34); Mean Corpuscular Volume 86.2 fL (80-100); Monocytes Absolute Auto 500 /uL (0-900); Monocytes Percent Auto 10.6 % (3-14); Neutrophils Absolute Auto 2700 /uL (1500-7000); Neutrophils Percent Auto 56.8 % (50-75); Platelet Count 242 X10^3/uL (150-400); Red Blood Cell Count 4.75 X10^6/uL (4.5-5.9); Red Cell Distribution Width 13.5 % (11.6-14.8); White Blood Cell Count 4.8 X10^3/uL (4.5-11.0)
[2021-08-16 09:44] LABS: Alanine Aminotransferase 29 IU/L (<50); Albumin 4.3 g/dL (3.5-5.0); Albumin Globulin Ratio 1.5 (1.0-2.8); Alkaline Phosphatase 70 U/L (38-126); Aspartate Aminotransferase 30 IU/L (17-59); BUN Creatinine Ratio 14.3 (6-22); Bilirubin Total 0.5 mg/dL (0.2-1.3); Blood Urea Nitrogen 14 mg/dL (9-20); Calcium 8.9 mg/dL (8.4-10.2); Carbon Dioxide 29 mmol/L (22-32); Chloride 104 mmol/L (98-107); Cholesterol 252 mg/dL (140-199); Estimated Glomerular Filt Rate > 60 mL/min (>60); Globulin 2.8 g/dL (1.7-4.1); Glucose 96 mg/dL (80-110); HDL Cholesterol 41 mg/dL (40-60); HEMOLYSIS < 15 (0-50); LDL Cholesterol Calculated 186 mg/dL (<100); Potassium 4.4 mmol/L (3.4-5.1); Sodium 137 mmol/L (137-145); Total Protein 7.1 g/dL (6.3-8.2); Triglycerides 126 mg/dL (35-150)
[2021-08-16 10:13] LABS: Prostate Specific Antigen Scrn 11.8 ng/mL (0.1-4.0)
[2021-08-16 10:16] LABS: TSH w/ Reflex to FT4 2.11 uIU/mL (0.47-4.68)
[2021-08-16 18:31] LABS: Creatinine Urine Random 87.1 mg/dL
[2021-08-16 18:37] LABS: Microalbumi Creatinin Ratio Ur 27.5 ug/mg CR (<30); Microalbumin Urine Random 2.4 mg/dL (0-1.6)
== END ==
PROVIDERS: PCP Family Medicine; Referring Provider Family Medicine; Visit Provider Family Medicine
DX: E78.5 Hyperlipidemia, unspecified (principal); I10 Essential (primary) hypertension; Z12.5 Encounter for screening for malignant neoplasm of prostate; D64.9 Anemia, unspecified; R97.20 Elevated prostate specific antigen [PSA]
CPT/HCPCS: 36415; 80053; 80061; 82043; 82570; 84443; 85025; G0103

== ENCOUNTER → 2021-09-14 13:40 | Outpatient (CLI) | payer MEDICARE, SELFPAY ==
[2017-12-17 14:11] VITALS: BMI 26.4
--- NOTE | 2021-09-14 13:42 | DI.NM.S_ITS ---
PROCEDURE: NM ANUPAMA PERF SPECT REST & STR Rest and exercise myocardial perfusion SPECT with gated imaging and ejection fraction RADIOPHARMACEUTICAL: 23.8 mCi Tc-99m sestamibi IV at rest and 25.6 mCi Tc-99m sestamibi IV at peak exercise. A [id number] was performed. INDICATIONS: intermittent chest pain. atypical TECHNIQUE: Radiopharmaceutical was injected at peak stress test, and also at rest. SPECT images were obtained. SPECT myocardial perfusion images were displayed in short axis, horizontal long axis, and vertical long axis views. Gated images were reviewed using [employer] software. COMPARISON: None. CARDIAC STRESS: A standard Avila treadmill exercise tolerance test was performed by the patient under the supervision of an attending staff. The patient exercised for 7 minutes and 52 seconds; 10.1 METS; functional aerobic impairment (BRITNEY) is -20%. Hemodynamic data: There is normal blood pressure and heart rate response to exercise stress. Patient achieved 104 of maximum predicted heart rate at peak exercise. Peak blood pressure 212/102. Symptoms: Patient denied chest pain during exercise. EKG: No diagnostic EKG changes of ischemia; rare PAC and PVC. FINDINGS: Raw data: There is good myocardial labeling by radiotracer. No significant motion artifacts. Toil-uo-dgvjx ratio is 0.43 (normal is less than 0.38 for sestamibi tracer, and less than 0.50 for thallium tracer). Left ventricle function: Gated images demonstrate normal left ventricle wall thickening. No segmental wall motion abnormality. No transient ischemic dilation; TID is 0.94 (normal less than 1.3). The left ventricle resting end-diastolic volume is 108 mL. Left ventricle stress ejection fraction is 74%; normal values are above 45%. Myocardial perfusion: There is a small size, mild intensity fixed apical defect seen on the rest and supine images which resolves on prone images making this most consistent with artifact. Wall motion is preserved. No evidence of ischemia or scar. IMPRESSION: Low risk study. No evidence of exercise-induced ischemia on ECG or SPECT imaging. Normal LV function. Dictated by: Hannah Serra D.O. on 09/15/2021 at 16:56 Approved by: Hannah Serra D.O. on 09/15/2021 at 17:00
[2021-09-14 15:28] LABS: COVID19 -Nasal RAPID Negative (Negative)
--- NOTE | 2021-09-15 09:11 | P.PCN_ITS ---
Cardiac Stress Test Report Referral & Results Date Patient Seen: 09/15/21 Time Patient Seen: 09:00 Requesting provider: Chau Damon Indication: Chest discomfort Rest ECG: Normal sinus rhythm Procedure Note: Today, following both written and verbal informed consent, the patient was exercised according to a standard [facility] protocol. The patient went for a total of 7 minutes 52 seconds achieving a maximum heart rate of 148 maximum systolic blood pressure of to 12. This is approximately 10.1 METs. Exercise was terminated at this point because of fatigue. Patient was also given Cardiolite through a previously started Hep-Lock IV by the nuclear medicine pet ct technologist approximately 1 minute prior to the cessation of exercise. Normal hemodynamic response to exercise. No EKG changes other than rare PAC/PVC. Excellent exercise capacity (FA I -20% on active scale). No signs or symptoms of angina. Impression: Low probability for ischemia. Perfusion imaging pending. Please note: Actual ECG tracings can be found in the PACS system.
== END ==
PROVIDERS: PCP Family Medicine; Referring Provider Family Medicine; Visit Provider Family Medicine
DX: R07.89 Other chest pain (principal); Z20.822 Contact with and (suspected) exposure to COVID-19
CPT/HCPCS: 78452; 87635; 93016; 93017; 93018; A9502

== ENCOUNTER → 2021-11-30 12:49 | Outpatient (CLI) | payer MEDICARE, SELFPAY ==
[2017-12-17 14:11] VITALS: BMI 26.4
--- NOTE | 2021-11-30 12:50 | DI.MRI.S_ITS ---
PROCEDURE: MR PELIS WO/W CON INDICATIONS: Elevated PSA, rule out PI-RADS lesions TECHNIQUE: Coronal HASTE, axial T1 FSE with fat saturation, 3-plane nonbreath-hold T2 FSE. After the administration of contrast, dynamic axial, delayed axial and coronal VIBE or 2-D FLASH with fat saturation through the pelvis. Optional diffusion weighted imaging and ADC may be performed. COMPARISON: None. FINDINGS: Image quality: Diffusion-weighted images are nondiagnostic due to susceptibility artifact from left hip arthroplasty. Prostate: Massively enlarged gland measuring 6.4 x 8 x 6.4 cm, for a volume of 170 cc. 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 The peripheral zone is compressed. Genitourinary system: Bladder wall thickness is normal. Distal ureters are non distended. Bowel and peritoneum: No pathologic free pelvic fluid. Inferior colon and small bowel loops are normal in caliber. Nodes and vessels: There are prominent pelvic lymph nodes are not enlarged by size criteria, indeterminate. Soft tissues: Left inguinal hernia. Bones: left hip arthroplasty, with susceptibility artifact limiting evaluation. Renal cysts are present. IMPRESSION: Unable to evaluate for PI-RADS lesions due to nondiagnostic diffusion-weighted images from left hip arthroplasty. Within this limitation however, there is low suspicion for clinically significant cancer due to appearance of massive BPH in the transitional zone that compresses the peripheral zone. Dictated by: Ryan Bill M.D. on 11/30/2021 at 17:37 Approved by: Ryan Bill M.D. on 11/30/2021 at 17:42
== END ==
PROVIDERS: PCP Family Medicine; Referring Provider Urology; Visit Provider Urology
DX: N40.0 Benign prostatic hyperplasia without lower urinary tract symptoms (principal); R97.20 Elevated prostate specific antigen [PSA]; Z96.642 Presence of left artificial hip joint
CPT/HCPCS: 72197

== ENCOUNTER → 2022-03-09 08:38 | Outpatient (CLI) | payer MEDICARE, SELFPAY ==
[2017-12-17 14:11] VITALS: BMI 26.4
[2022-03-09 10:26] LABS: Prostate Specific Antigen 8.02 ng/mL (0.10-4.00)
== END ==
PROVIDERS: PCP Family Medicine; Referring Provider Urology; Visit Provider Urology
DX: R97.20 Elevated prostate specific antigen [PSA] (principal)
CPT/HCPCS: 36415; 84153

== ENCOUNTER 2022-11-23 14:45 | Observation (INO) | payer MEDICARE, SELFPAY ==
[2017-12-17 14:11] VITALS: BMI 26.4
[2022-11-23] VITALS (11 sets, daily range): BP systolic 144–197; BP diastolic 77–90; PULSE 59–79; RESP 15–25; TEMP 36.1–36.4; O2SAT 97–100; BMI 27.3
--- NOTE | 2022-11-23 | DI.CT.S_ITS ---
PROCEDURE: CT STROKE INDICATIONS: STROKE TECHNIQUE: Noncontrast 4.5 mm thick angled axial sections acquired from the foramen magnum to the vertex, with coronal reformats. For radiation dose reduction, the following was used: automated exposure control, adjustment of mA and/or kV according to patient size. COMPARISON: None. FINDINGS: Image quality: Excellent. CSF spaces: Basal cisterns are patent. No extra-axial fluid collections. The ventricles are symmetric in size and shape. Brain: No intracranial bleeds or masses. There is cerebral volume loss for age, with resultant ventricular and sulcal prominence. There are periventricular and deep white matter chronic small vessel ischemic changes. There is intracranial internal carotid artery atherosclerosis. Skull and face: Calvarium and visualized facial bones appear intact, without suspicious lesions. Sinuses: Visualized sinuses and mastoids are clear. IMPRESSION: No acute intracranial pathology. Findings discussed with Dr. Fletcher at 2:57 p.m. On 11/23/2022. This study fulfills neurological imaging criteria for inclusion or exclusion of acute stroke therapies based on available published neurological guidelines. Dictated by: Omar Bowden M.D. on 11/23/2022 at 14:56 Approved by: Omar Bowden M.D. on 11/23/2022 at 14:58
--- NOTE | 2022-11-23 14:51 | DI.CT.S_ITS ---
PROCEDURE: CT ANGIO HEAD AND NECK INDICATIONS: vertigo, left leaning TECHNIQUE: After the administration of intravenous contrast, 1 mm thick sections acquired from the aortic arch through the [place]. 3-dimensional kfljurh-bytllmibk-tsoshdnehw (MIP) and/or volume rendering reformats were acquired of the central intracranial vasculature and neck separately. For radiation dose reduction, the following was used: automated exposure control, adjustment of mA and/or kV according to patient size. COMPARISON: None. FINDINGS: Image quality: Diagnostic. BRAIN: See separately dictated CT of the head. HEAD CT ANGIOGRAPHY: Anterior circulation: Intracranial internal carotid arteries are normal in size and flow. Mild atherosclerosis. The flow within the paired anterior cerebral arteries is normal and symmetric. The flow within the middle cerebral arteries is normal and symmetric. The anterior communicating artery is seen. No aneurysms are seen. Posterior circulation: Visualized portions of the vertebral arteries demonstrate normal caliber, and join to form a normal appearing basilar artery. Flow within the posterior cerebral arteries is normal and symmetric. No aneurysms are seen. NECK CT ANGIOGRAPHY: Carotid system: The great vessels demonstrate a conventional anatomy as they arise from the aortic arch. The origins of the common carotid arteries appear patent. The common carotid arteries demonstrate normal caliber and courses. The bifurcation regions are both widely patent. The internal carotid arteries demonstrate normal calibers and courses. Posterior circulation: The origins of the vertebral arteries both appear widely patent. The more superior extracranial portions of both vertebral arteries also demonstrate normal courses and calibers. They join to form a normal appearing basilar artery. Soft tissues: Visualized neck soft tissues demonstrate no suspicious abnormalities. Large right thyroid nodule measuring 3 centimeters. Partially visualized lobulated low-density left upper lobe mass measuring 2.6 centimeters with hyperinflated lungs peripheral to it. Right upper lobe calcified granuloma. Low-density subcutaneous nodule within the upper back just to the left of midline, likely an epidermal inclusion cyst. Bones: No suspicious bony lesions. Degenerative changes of the spine with grade 1 anterolisthesis of C4 on C5. Visualized cervical spine appears normally aligned. IMPRESSION: 1. The arteries of the head and neck are patent without hemodynamically significant stenosis or large vessel occlusion. 2. Partially visualized lobulated low-density mass within the left upper lobe with hyperinflated lung peripheral to it. Likely represents mucoid impaction, mass is not entirely excluded. Recommend chest CT for further evaluation. 3. Right thyroid nodule measuring 3 centimeters, recommend nonurgent thyroid ultrasound for further evaluation. Any quantitative measurements of stenosis were performed using NASCET criteria. Dictated by: Heriberto Rivas M.D. on 11/23/2022 at 15:33 Approved by: Heriberto Rivas M.D. on 11/23/2022 at 15:43
[2022-11-23 14:59] LABS: Add Manual Diff / Slide Review NO; Basophils Absolute Auto 0 /uL (0-100); Basophils Percent Auto 0.5 % (0-2); Eosinophils Absolute Auto 0 /uL (0-450); Eosinophils Percent Auto 0.5 % (2-4); Hematocrit 39.7 % (41-53); Hemoglobin 13.7 g/dL (13.5-17.5); Lymphocytes Absolute Auto 1900 /uL (1100-4500); Lymphocytes Percent Auto 31.5 % (25-40); Mean Corpuscular HGB Conc 34.5 % (30-36); Mean Corpuscular Hemoglobin 29.9 PG (26-34); Mean Corpuscular Volume 86.6 fL (80-100); Monocytes Absolute Auto 700 /uL (0-900); Monocytes Percent Auto 10.9 % (3-14); Neutrophils Absolute Auto 3500 /uL (1500-7000); Neutrophils Percent Auto 56.6 % (50-75); Platelet Count 238 X10^3/uL (150-400); Red Blood Cell Count 4.58 X10^6/uL (4.5-5.9); Red Cell Distribution Width 13.2 % (11.6-14.8); White Blood Cell Count 6.1 X10^3/uL (4.5-11.0)
--- NOTE | 2022-11-23 15:12 | ED_ITS ---
HPI - Neuro Symptoms/Deficit General Chief Complaint: Neuro Symptoms/Deficit Stated Complaint: Stroke Time Seen by Provider: 11/23/22 14:51 Source: patient and EMS Mode of arrival: EMS History of Present Illness HPI Narrative: This is an 82-year-old male with no anticoagulation with history of BPH and currently untreated dyslipidemia. Patient states he was at the grocery store with his they were in the vegetable awhile he bent over to grab something and got immediately dizzy. He states every time he moves his head makes his sym ptoms much worse. He states it was a little bit to the left side. Patient states any time he moves his it bothers him he is quite nauseated he feels confused. Patient states he beers towards the left. Patient states he is got a headache in the back of his head and radiating towards his eyes. He denies any vision changes or double vision. He states his voice seems a little higher than usual. Denies chest pain or pressure no shortness of breath. No numbness, tingling or weakness. Patient does actually noticed some changes on NIH exam that the left feels less than the right. Patient denies incontinence, no diarrhea constipation, no other urinary symptoms. He is not similar symptoms in the past. Patient states he takes medication for his prostate, multivitamin, no aspirin, no Plavix or other thinners. Denies diabetes or hypertension states he used to take a medication for cholesterol but when he got a new physician they did not continue it. He is had a prior hip replacement no cardiac stents. No known drug allergies. No tobacco, alcohol or illicit. His primary care is Dr. Damon. On Anticoagulants: No Related Data Home Medications Medication Instructions Recorded Confirmed tamsulosin 0.4 mg capsule 0.4 mg PO BEDTIME 11/23/22 11/23/22 Previous Rx's Medication Instructions Recorded finasteride 5 mg tablet 5 mg PO DAILY #30 tabs 12/14/21 Allergies Allergy/AdvReac Type Severity Reaction Status Date / Time No Known Drug Allergies Allergy Verified 11/23/22 15:03 Review of Systems Review of Systems ROS Unobtainable: All systems reviewed & are unremarkable except as noted in HPI and below Hematologic/Lymphatic On Anticoagulants: No Patient History Medical History Asymptomatic microscopic hematuria Bleeding external hemorrhoids Elevated PSA History of urinary retention HTN (hypertension) Hyperlipidemia Incomplete emptying of bladder Lower urinary tract symptoms Numbness Osteoarthritis of left hip Urinary retention Surgical History History of hip replacement History of prostate biopsy History of vasectomy Hx of hemorrhoidectomy Hx of thumb surgery Family History Father CAD (coronary artery disease) Hyperlipidemia Social History marital status: household members: spouse Smoking Status: Never smoker alcohol intake: current caffeine: Yes Type(s) of exercise: walking Smoking Status: Never smoker alcohol intake frequency: holidays/special occasions only Substance Use Type: does not use Exam Narrative Exam Narrative: GEN: well nourished, well appearing male, alert and oriented x 3, patient appears to be in dtua-lv-kaahrtaa distress. HEENT: Atraumatic, pupils are equal round reactive to light, extraocular movements are intact, no nystagmus, nares are clear, TMs are clear with no fluid, there is no conjunctival pallor. Throat is clear without any exudates, erythema, tonsillar enlargement or uvular deviation, no facial droop. HEART: Regular rate and rhythm without murmur, clicks, rubs. No carotid bruits, pulses are equal in upper and lower extremities LUNGS:Lungs clear to auscultation, no wheezes, rales, crackles, chest moves symmetrically ABD:bowel sounds normal, soft, non-tender, no guarding, rebound, rigidity, no masses noted, no hepatosplenomegaly :No CVA tenderness MSCL: Non-tender, no muscle atrophy, muscles strength 5/5 upper and lower extremities, full range of motion, normal gait NEURO:CN 2-12 intact, sensation states he notes that he can feel sensation stronger on the right than the left with touch., finger nose finger test normal, heel luo test normal, no dysarthria or aphasia. Patient is shaky bilateral upper extremities which he states is new. Initial Vital Signs Initial Vital Signs: Vital Signs Temperature 97.6 F 11/23/22 14:45 Pulse Rate 79 11/23/22 14:45 Respiratory Rate 15 11/23/22 14:45 Blood Pressure 179/77 H 11/23/22 14:45 Pulse Oximetry 99 11/23/22 14:45 Oxygen Delivery Method Room Air 11/23/22 14:45 Scores NIH Stroke Scale Level of Conciousness: Alert, keenly responsive Ask month/age: Answers both questions correctly. Open/close eyes, close hand: Performs both tasks correctly Best gaze horizontal: Normal Visual tenorio: No visual loss Facial palsy: Normal symetrical movement Left arm drift: No drift for full 10 sec Right arm drift: No drift for full 10 sec Left leg drift: No drift for full 5 sec Right leg drift: No drift for full 5 sec Limb ataxia: Absent Sensory on face/arms/legs: Mild to moderate sensory loss, can tell touch Best language: No aphasia, normal Dysarthria: Normal Extinction or inattention: No abnormality Total NIH Stroke scale score: 1 Course Orders Ordered: ED Orders 11/23/22 14:51 CT angio head and neck Stat Complete Blood Count AUTO DIFF Stat Comprehensive Metabolic Panel Stat Ethanol (ETOH) Stat PTT Partial Thromboplastin Venancio Stat Prothrombin Time INR Stat Troponin & CK Cardiac Panel Stat EKG-12 Lead Stat 11/23/22 15:25 COVID19 -Nasal RAPID Stat 11/23/22 16:01 MR head/brain wo con Stat 11/23/22 16:02 CT chest w con Stat 11/23/22 18:00 Urinalysis and Microscopic Stat Urine Drug Screen, Rapid Stat Acetaminophen (Acetaminophen 325 Mg Tablet) 650 mg PO Q6H PRN PRN Reason: Fever/Mild Pain (1-3) Aspirin (Aspirin Ec 81 Mg Tablet) 81 mg PO DAILY [facility] Atorvastatin Calcium (Atorvastatin 20 Mg Tablet) 80 mg PO BEDTIME [facility] Clopidogrel Bisulfate (Clopidogrel 75 Mg Tablet) 75 mg PO DAILY [facility] Stop: 12/14/22 08:59 Enoxaparin Sodium (Enoxaparin 40 Mg/0.4 Ml Syringe) 40 mg SUBCUT DAILY [facility] Last Admin: 11/23/22 17:23 Dose: 40 mg Documented By: RB Melatonin (Melatonin 3 Mg Tablet) 6 mg PO BEDTIME PRN PRN Reason: Insomnia Naloxone HCl (Naloxone 0.4 Mg/Ml Vial) 0.2 mg IV Q2MIN PRN PRN Reason: Opiate Reversal Ondansetron HCl (Ondansetron 4 Mg/2 Ml Inj) 4 mg IV Q6HR [facility] Last Admin: 11/23/22 17:24 Dose: 4 mg Documented By: IVY Polyethylene Glycol (Polyethylene Glycol 3350 17 Gm Powd.Pack) 17 gm PO DAILY PRN PRN Reason: Constipation Sennosides (Sennosides 8.6 Mg Tablet) 8.6 mg PO BID PRN PRN Reason: Constipation Discontinued Medications Aspirin (Aspirin 81 Mg Chew Tab) 324 mg PO NOW ONE Stop: 11/23/22 16:06 Last Admin: 11/23/22 16:13 Dose: 324 mg Documented By: DERIAN Clopidogrel Bisulfate (Clopidogrel 75 Mg Tablet) 300 mg PO NOW ONE Stop: 11/23/22 16:06 Last Admin: 11/23/22 16:11 Dose: 300 mg Documented By: DERIAN Sodium Chloride (Normal Saline 0.9%) 1,000 mls @ 150 mls/hr IV CONT JUANY Last Infusion: 11/23/22 17:16 Dose: 0 mls/hr Documented By: Admin: 11/23/22 15:14 Dose: 150 mls/hr Documented By: CAMELIA Meclizine HCl (Meclizine Hcl 12.5 Mg Tablet) 50 mg PO NOW ONE Stop: 11/23/22 16:02 Last Admin: 11/23/22 16:07 Dose: 50 mg Documented By: DERIAN Vital Signs Vital signs: Vital Signs - 8 hr 11/23/22 14:45 11/23/22 15:00 11/23/22 15:15 Temperature 97.6 F Pulse Rate 79 76 69 Respiratory Rate 15 22 22 Blood Pressure 179/77 H 179/77 H 162/79 H Pulse Oximetry 99 99 98 Oxygen Delivery Method Room Air Room Air Room Air 11/23/22 15:20 11/23/22 15:25 11/23/22 15:30 Temperature Pulse Rate 68 68 64 Respiratory Rate 25 H 23 23 Blood Pressure 160/88 H 162/90 H 158/86 H Pulse Oximetry 98 98 99 Oxygen Delivery Method Room Air Room Air Room Air 11/23/22 15:35 11/23/22 15:40 Temperature Pulse Rate 63 64 Respiratory Rate 24 25 H Blood Pressure 169/88 H 159/86 H Pulse Oximetry 97 98 Oxygen Delivery Method Room Air Room Air MDM - Neuro Symptoms/Deficit Lab Data 11/23/22 14:51 11/23/22 14:51 Labs: Lab Results 11/23/22 11/23/22 11/23/22 Range/Units 14:51 14:51 14:51 WBC 6.1 (4.5-11.0) X10^3/uL RBC 4.58 (4.5-5.9) X10^6/uL Hgb 13.7 (13.5-17.5) g/dL Hct 39.7 L (41-53) % MCV 86.6 (80-100) fL MCH 29.9 (26-34) PG MCHC 34.5 (30-36) % RDW 13.2 (11.6-14.8) % Plt Count 238 (150-400) X10^3/uL Neut % (Auto) 56.6 (50-75) % Lymph % (Auto) 31.5 (25-40) % Banner % (Auto) 10.9 (3-14) % Eos % (Auto) 0.5 L (2-4) % Baso % (Auto) 0.5 (0-2) % Neut # (Auto) 3500 (3344-7838) /uL Lymph # (Auto) 1900 (3512-3128) /uL Banner # (Auto) 700 (0-900) /uL Eos # (Auto) 0 (0-450) /uL Baso # (Auto) 0 (0-100) /uL PT 11.7 (10.1-12.7) SECONDS INR 1.0 (0.9-1.3) APTT 30 (26-36) SECONDS Sodium 136 L (137-145) mmol/L Potassium 3.7 (3.4-5.1) mmol/L Chloride 101 (98-107) mmol/L Carbon Dioxide 24 (22-32) mmol/L BUN 19 (9-20) mg/dL Creatinine 0.93 (0.66-1.25) mg/dL Estimated GFR > 60 (>60) mL/min BUN/Creatinine Ratio 20.4 (6-22) Glucose 99 (80-110) mg/dL Hemoglobin A1c (4.0-6.0) % Calcium 9.6 (8.4-10.2) mg/dL Magnesium (1.6-2.3) mg/dL Total Bilirubin 0.7 (0.2-1.3) mg/dL AST 30 (17-59) IU/L ALT 20 (<50) IU/L Alkaline Phosphatase 91 (38-126) U/L Total Creatine Kinase 103 (55-170) U/L Troponin I < 0.012 (0.01-0.034) ng/mL Total Protein 7.9 (6.3-8.2) g/dL Albumin 4.6 (3.5-5.0) g/dL Globulin 3.3 (1.7-4.1) g/dL Albumin/Globulin Ratio 1.4 (1.0-2.8) Triglycerides (35-150) mg/dL Cholesterol (140-199) mg/dL LDL Cholesterol, Calc (<100) mg/dL HDL Cholesterol (40-60) mg/dL TSH (0.47-4.68) uIU/mL Ethyl Alcohol < 10 ( - 10) mg/dL SARS-CoV-2 (PCR) (Negative) 11/23/22 11/23/22 11/23/22 Range/Units 14:51 14:51 14:51 WBC (4.5-11.0) X10^3/uL RBC (4.5-5.9) X10^6/uL Hgb (13.5-17.5) g/dL Hct (41-53) % MCV (80-100) fL MCH (26-34) PG MCHC (30-36) % RDW (11.6-14.8) % Plt Count (150-400) X10^3/uL Neut % (Auto) (50-75) % Lymph % (Auto) (25-40) % Banner % (Auto) (3-14) % Eos % (Auto) (2-4) % Baso % (Auto) (0-2) % Neut # (Auto) (7455-6713) /uL Lymph # (Auto) (2431-0629) /uL Banner # (Auto) (0-900) /uL Eos # (Auto) (0-450) /uL Baso # (Auto) (0-100) /uL PT (10.1-12.7) SECONDS INR (0.9-1.3) APTT (26-36) SECONDS Sodium (137-145) mmol/L Potassium (3.4-5.1) mmol/L Chloride (98-107) mmol/L Carbon Dioxide (22-32) mmol/L BUN (9-20) mg/dL Creatinine (0.66-1.25) mg/dL Estimated GFR (>60) mL/min BUN/Creatinine Ratio (6-22) Glucose (80-110) mg/dL Hemoglobin A1c 5.5 (4.0-6.0) % Calcium (8.4-10.2) mg/dL Magnesium 1.9 (1.6-2.3) mg/dL Total Bilirubin (0.2-1.3) mg/dL AST (17-59) IU/L ALT (<50) IU/L Alkaline Phosphatase (38-126) U/L Total Creatine Kinase (55-170) U/L Troponin I (0.01-0.034) ng/mL Total Protein (6.3-8.2) g/dL Albumin (3.5-5.0) g/dL Globulin (1.7-4.1) g/dL Albumin/Globulin Ratio (1.0-2.8) Triglycerides 132 (35-150) mg/dL Cholesterol 244 H (140-199) mg/dL LDL Cholesterol, Calc 173 H (<100) mg/dL HDL Cholesterol 45 (40-60) mg/dL TSH (0.47-4.68) uIU/mL Ethyl Alcohol ( - 10) mg/dL SARS-CoV-2 (PCR) (Negative) 11/23/22 11/23/22 Range/Units 14:51 15:25 WBC (4.5-11.0) X10^3/uL RBC (4.5-5.9) X10^6/uL Hgb (13.5-17.5) g/dL Hct (41-53) % MCV (80-100) fL MCH (26-34) PG MCHC (30-36) % RDW (11.6-14.8) % Plt Count (150-400) X10^3/uL Neut % (Auto) (50-75) % Lymph % (Auto) (25-40) % Banner % (Auto) (3-14) % Eos % (Auto) (2-4) % Baso % (Auto) (0-2) % Neut # (Auto) (0510-3806) /uL Lymph # (Auto) (6602-1967) /uL Banner # (Auto) (0-900) /uL Eos # (Auto) (0-450) /uL Baso # (Auto) (0-100) /uL PT (10.1-12.7) SECONDS INR (0.9-1.3) APTT (26-36) SECONDS Sodium (137-145) mmol/L Potassium (3.4-5.1) mmol/L Chloride (98-107) mmol/L Carbon Dioxide (22-32) mmol/L BUN (9-20) mg/dL Creatinine (0.66-1.25) mg/dL Estimated GFR (>60) mL/min BUN/Creatinine Ratio (6-22) Glucose (80-110) mg/dL Hemoglobin A1c (4.0-6.0) % Calcium (8.4-10.2) mg/dL Magnesium (1.6-2.3) mg/dL Total Bilirubin (0.2-1.3) mg/dL AST (17-59) IU/L ALT (<50) IU/L Alkaline Phosphatase (38-126) U/L Total Creatine Kinase (55-170) U/L Troponin I (0.01-0.034) ng/mL Total Protein (6.3-8.2) g/dL Albumin (3.5-5.0) g/dL Globulin (1.7-4.1) g/dL Albumin/Globulin Ratio (1.0-2.8) Triglycerides (35-150) mg/dL Cholesterol (140-199) mg/dL LDL Cholesterol, Calc (<100) mg/dL HDL Cholesterol (40-60) mg/dL TSH 2.09 (0.47-4.68) uIU/mL Ethyl Alcohol ( - 10) mg/dL SARS-CoV-2 (PCR) Negative (Negative) Point of Care Testing Glucose POC [address] scan - head: Radiologist's Impression: [address] [address] [address] Scan Report Signed Patient: Maynor Barnes MR#: [id number] : 1940 Acct:[id number] Age/Sex: 82 / M Date of Service: 11/23/22 Loc: ED Accession Number: [id number] ?? Procedure: CT Stroke Ordering Provider: *Randal,ED*? PROCEDURE:? CT STROKE ? INDICATIONS:? STROKE ? TECHNIQUE:? Noncontrast 4.5 mm thick angled axial sections acquired from the foramen magnum to the vertex, with coronal reformats.? For radiation dose reduction, the following was used:? automated exposure control, adjustment of mA and/or kV according to patient size.? ? COMPARISON:? None. ? FINDINGS:? Image quality:? Excellent.? ? CSF spaces:? Basal cisterns are patent.? No extra-axial fluid collections.? The ventricles are symmetric in size and shape.? ? Brain:? No intracranial bleeds or masses.? There is cerebral volume loss for age, with resultant ventricular and sulcal prominence.? There are periventricular and deep white matter chronic small vessel ischemic changes.? There is intracranial internal carotid artery atherosclerosis.? ? Skull and face:? Calvarium and visualized facial bones appear intact, without suspicious lesions.? ? Sinuses:? Visualized sinuses and mastoids are clear.? ? IMPRESSION:? No acute intracranial pathology.? ? Findings discussed with Dr. Fletcher at 2:57 p.m. On 11/23/2022. ? This study fulfills neurological imaging criteria for inclusion or exclusion of acute stroke therapies based on available published neurological guidelines.? ? ? Dictated by: Omar Bowden M.D. on 11/23/2022 at 14:56 ? ? Approved by: Omar Bowden M.D. on 11/23/2022 at 14:58?? CTA - brain/neck: Radiologist's Impression: CameronMaynor Amos??82??M??1940 ? Allergy/Adv: No Known Drug Allergies Close Head/Neck CTA (Signed) Heriberto Rivas - 11/23/[address] (Signed) Omar Bowden - 11/23/22 Pelvis MRI (Signed) Ryan Bill - 11/30/21 Myocardial Perfusion Scan Nuc Med (Signed) Hannah Serra - 09/14/21 Wrist X-Ray (Signed) Flora Gupta - 10/29/20 Chest X-Ray (Signed) Clarke Mercedes - 05/20/18 Bladder Scan 12/17/17 Pelvis X-Ray (Signed) Gregory Gordon - 12/17/17 Launch?[address] [address] [address] Scan Report Signed Patient: Maynor Barnes MR#: [id number] : 1940 Acct:[id number] Age/Sex: 82 / M Date of Service: 11/23/22 Loc: ED Accession Number: [id number] ?? Procedure: CT angio head and neck Ordering Provider: Ayse Fletcher D.O. PROCEDURE:? CT ANGIO HEAD AND NECK ? INDICATIONS:? vertigo, left leaning ? TECHNIQUE:? After the administration of intravenous contrast, 1 mm thick sections acquired from the aortic arch through the [place] of Jhaveri.? 3-dimensional maxi zmr-srskbnxbh-tgnxejppfi (MIP) and/or volume rendering reformats were acquired of the central intrac ranial vasculature and neck separately. For radiation dose reduction, the following was used:? automated exposure control, adjustment of mA and/or kV according to patient size.? ? COMPARISON:? None. ? FINDINGS:? Image quality:? Diagnostic.? ? BRAIN:? See separately dictated CT of the head.? ? HEAD CT ANGIOGRAPHY:? Anterior circulation:? Intracranial internal carotid arteries are normal in size and flow.? Mild atherosclerosis.? The flow within the paired anterior cerebral arteries is normal and symmetric.? The flow within the middle cerebral arteries is normal and symmetric.? The anterior communicating artery is seen.? No aneurysms are seen.? ? Posterior circulation:? Visualized portions of the vertebral arteries demonstrate normal caliber, and join to form a normal appearing basilar artery.? Flow within the posterior cerebral arteries is normal and symmetric.? No aneurysms are seen.? ? NECK CT ANGIOGRAPHY:? Carotid system:? The great vessels demonstrate a conventional anatomy as they a rise from the aortic arch.? The origins of the common carotid arteries appear patent.? The common carotid arteries demonstrate normal caliber and courses.? The bifurcation regions are both widely patent.? The internal carotid arteries demonstrate normal calibers and courses.? ? Posterior circulation:? The origins of the vertebral arteries both appear widely patent.? The more superior extracranial portions of both vertebral arteries also demonstrate normal courses and calibers.? They join to form a normal appearing basilar artery.? ? Soft tissues:? Visualized neck soft tissues demonstrate no suspicious abnormalities.? Large right thyroid nodule measuring 3 centimeters.? Partially visualized l obulated low-density left upper lobe mass measuring 2.6 centimeters with hyperinflated lungs peripheral to it.? Right upper lobe calcified granuloma.? Low-density subcutaneous nodule within the upper back just to the left of midline, likely an epidermal inclusion cyst. ? Bones:? No suspicious bony lesions.? Degenerative changes of the spine with grade 1 anterolisthesis of C4 on C5.? Visualized cervical spine appears normally aligned.? ? ? IMPRESSION:? ? 1. The arteries of the head and neck are patent without hemodynamically significant stenosis or large vessel occlusion. 2. Partially visualized lobulated low-density mass within the left upper lobe with hyperinflated lung peripheral to it.? Likely represents mucoid impaction, mass is not entirely excluded.? Recommend chest CT for further evaluation. 3. Right thyroid nodule measuring 3 centimeters, recommend nonurgent thyroid ultrasound for further evaluation. ? Any quantitative measurements of stenosis were performed using NASCET criteria.? ? ? Dictated by: Heriberto Rivas M.D. on 11/23/2022 at 15:33 ? ? Approved by: Heriberto Rivas M.D. on 11/23/2022 at 15:43?? ECG Data Attestation: I personally reviewed and interpreted this ECG as follows: Prior ECG tracings: available for review Interpretation: Sinus rhythm rate of 73, CT 170 QRS of [address]TC [address] No [address] elevation. 12/03/[address] [facility] Narrative Medical decision making narrative: 82-year-old male with sudden onset of vertigo-like symptoms. Patient's NIH is 1 for sensation change, he was able to walk somewhat at the grocery store and into the house. Symptoms seem like might be cerebellar stroke versus sudden onset vertigo. Patient is slightly hypertensive. He is not on any anticoagulants. Initial EKG shows no acute changes. CBC, coags, CMP show no acute changes, troponin shows troponin. Patient's CT angio shows no hemodynamically significant stenosis or large vessel occlusion there is a lobulated low-density mass left upper lobe likely repre sents mucoid impaction but mass not entirely excluded. Chest CT recommended in right thyroid nodule. [facility], asked for consultation with videostroke evaluation. Patient seen by neurology or video. Neurology feels unlikely recommend lytics unless patient has significant issues with ambulation. They feel symptoms are not strong enough to give lytics today but are suspicious for stroke they recommend stroke workup including MR. They did visualize blood vessels as well do not see any obvious aneurysm or vessel changes. They recommend aspirin 324 mg and Plavix 300 mg today followed by aspirin 81 mg daily and Plavix 75 mg for 21 days and stroke workup. Spoke with Dr. Archer hospitalist who accepts for inpatient admission. Discharge Plan Departure Patient Disposition: Admitted As Inpatient Clinical Impression: Vertigo, Acute CVA (cerebrovascular accident), Lung mass Admit Date/Time: 11/23/22 16:06 Admit Provider: Gabe Archer
[2022-11-23 15:13] LABS: Prothrombin Time 11.7 SECONDS (10.1-12.7)
[2022-11-23 15:14] LABS: HEMOLYSIS < 15 (0-50)
[2022-11-23] MEDS: SODIUM CHLORIDE 0.9% 1,000 ML 150 ML IV (15:14)
[2022-11-23 15:15] LABS: PTT Partial Thromboplastin Tim 30 SECONDS (26-36)
[2022-11-23 15:20] LABS: Alanine Aminotransferase 20 IU/L (<50); Albumin 4.6 g/dL (3.5-5.0); Albumin Globulin Ratio 1.4 (1.0-2.8); Alkaline Phosphatase 91 U/L (38-126); Aspartate Aminotransferase 30 IU/L (17-59); BUN Creatinine Ratio 20.4 (6-22); Bilirubin Total 0.7 mg/dL (0.2-1.3); Blood Urea Nitrogen 19 mg/dL (9-20); Calcium 9.6 mg/dL (8.4-10.2); Carbon Dioxide 24 mmol/L (22-32); Chloride 101 mmol/L (98-107); Creatine Kinase 103 U/L (55-170); Estimated Glomerular Filt Rate > 60 mL/min (>60); Ethanol (ETOH) < 10 mg/dL; Globulin 3.3 g/dL (1.7-4.1); Glucose 99 mg/dL (80-110); Potassium 3.7 mmol/L (3.4-5.1); Sodium 136 mmol/L (137-145); Total Protein 7.9 g/dL (6.3-8.2)
--- NOTE | 2022-11-23 15:30 | PC.NURSE ---
Pt feeling very dizzy with head pressure and neck pain/pressure. Pt extremely dizzy if moves his head. Pt also has a different sensation on left arm and leg compared to right side. Pt is alert and oriented. He if feeling very shakey.
[2022-11-23 15:42] LABS: Troponin I < 0.012 ng/mL (0.01-0.034)
[2022-11-23 15:52] LABS: COVID19 -Nasal RAPID Negative (Negative)
--- NOTE | 2022-11-23 16:01 | DI.MRI.S_ITS ---
PROCEDURE: MR HEAD/BRAIN WO CON INDICATIONS: vertigo TECHNIQUE: Non-contrast axial T1 spin echo, axial T2 fast spin echo, sagittal and axial FLAIR, coronal T2 fast spin echo, axial gradient echo, axial diffusion and ADC through the brain. COMPARISON: [facility], CT, CT ANGIO HEAD AND NECK, 11/23/2022, 15:00. [facility], CT, CT STROKE, 11/23/2022, 14:54. FINDINGS: Image quality: Excellent. CSF spaces: Ventricles appear symmetric in size and shape. There is mild cerebral volume loss with prominence of the ventricles and sulci. Basal cisterns are patent. No extra-axial fluid collections. Brain: No intracranial hemorrhage, mass, or mass effect. Diffusion-weighted images demonstrate no acute infarcts. Caballero/white matter interface is normal. There are few periventricular and subcortical foci of white matter T2 hyperintensity consistent with mild chronic white matter small vessel ischemic changes. Brainstem appears normal. Normal intravascular flow voids are present. Skull and face: Calvarial bone marrow is normal in signal. Orbits are normal. Sinuses: Paranasal sinuses are clear. There is partial fluid opacification of the left mastoid air cells compatible with mastoiditis. IMPRESSION: 1. No infarct or other acute intracranial abnormality. 2. Mild chronic white matter small small vessel ischemic changes and cerebral volume loss. 3. Partial fluid opacification of the left mastoid air cells compatible with mastoiditis. Dictated by: John Simpson M.D. on 11/23/2022 at 20:02 Approved by: John Simpson M.D. on 11/23/2022 at 20:05
--- NOTE | 2022-11-23 16:02 | DI.CT.S_ITS ---
PROCEDURE: CT CHEST W CON INDICATIONS: mass left chest TECHNIQUE: After the administration of intravenous contrast, 5 mm thick sections acquired from the pulmonary apices to the posterior costophrenic angles. 1 mm axial lung, 5 mm thick coronal and sagittal reformats and 7 mm axial MIP were acquired. For radiation dose reduction, the following was used: automated exposure control, adjustment of mA and/or kV according to patient size. COMPARISON: [facility], CT, CT ANGIO HEAD AND NECK, 11/23/2022, 15:00. FINDINGS: Image quality: Excellent. Lungs and pleura: Branching, low attenuating mass in the left upper lobe measuring 2.5 x 1.9 x 3.7 centimeters. The airways distal to the mass demonstrate oligemia. Calcified granuloma. Mediastinum: Heart size is normal. No pericardial effusion. No mediastinal or hilar adenopathy by size criteria. Thoracic aorta and central pulmonary arteries are normal in size. Esophagus is normal in caliber. No hiatal hernia. Moderate LAD calcifications. Calcified hilar nodes and mediastinal nodes. Bones and chest wall: No suspicious bony lesions. No vertebral body compression fractures. No axillary or supraclavicular adenopathy by size criteria. Thyroid gland contains a 3 centimeter right thyroid lobe nodule . Abdomen: Fluid attenuating left renal cystic lesion IMPRESSION: Branching, low-attenuation mass within the left upper lobe with distal oligemia within the lung. Findings fair for mucous impaction within an airway, less likely obstructive malignant mass. Recommend pulmonology referral for further evaluation and workup. Dictated by: Omar Bowden M.D. on 11/23/2022 at 17:09 Approved by: Omar Bowden M.D. on 11/23/2022 at 17:13
[2022-11-23] MEDS: MECLIZINE HCL 12.5 MG TABLET 50 MG PO (16:07)
[2022-11-23] MEDS: CLOPIDOGREL 75 MG TABLET 300 MG PO (16:11)
[2022-11-23] MEDS: ASPIRIN 81 MG CHEW TAB 324 MG PO (16:13)
--- NOTE | 2022-11-23 16:16 | DI.ECHO.S_ITS ---
[facility] +---------+ : : [address] : : : : [id number] : : : : Phone: [phone]+ Echocardiogram Report + + :Name: CYN LAMB Study Date: 11/24/2022 Height: 69 in : :[facility] ReadingLocation: Weight: 185 lb : : Gender: Male BSA: 2.0 m2 : :: 1940 Age: 82 yrs BP: 138/73 mmHg: :Reason For Study: POSSIBLE STROKE : :Ordering Physician: JACKELYN, : :SEAN Champagne Performed By: Heather Rapp : :Referring: SEAN HAYDEN : + + Interpretation Summary The ejection fraction is estimated to be 50-55%. There is no Doppler evidence for an interatrial shunt. There is mild aortic regurgitation. There is mild tricuspid regurgitation. The right ventricular systolic pressure is estimated to be at least 28 mmHg based on an estimated right atrial pressure of 3 mm Hg. Procedure: A two-dimensional transthoracic echocardiogram with color flow and Doppler was performed. The study quality was technically adequate. There is no prior echocardiogram noted for this patient. The patient was in sinus bradycardia with heart rates between 50-62 bpm during the exam. Left Ventricle: The left ventricle is normal in size and wall thickness. The ejection fraction is estimated to be 50-55%. Left ventricular wall motion is normal. Right Ventricle: The right ventricle is normal in size and function. Atria: The left atrial size is normal. Right atrial size is normal. There is no Doppler evidence for an interatrial shunt. Mitral Valve: The mitral valve is normal in structure and function. There is trace mitral regurgitation. Aortic Valve: The aortic valve is trileaflet. The aortic valve opens well. There is no aortic valve stenosis. There is mild aortic regurgitation. Tricuspid Valve: The tricuspid valve is normal in structure and function. There is mild tricuspid regurgitation. The right ventricular systolic pressure is estimated to be at least 28 mmHg based on an estimated right atrial pressure of 3 mm Hg. Pulmonic Valve: The pulmonic valve is not well visualized. There is mild pulmonic regurgitation. Great Vessels: The aortic root is normal size. The dimensions of the ascending aorta are normal. The IVC is of normal diameter and collapses greater than 50% with a sniff. This suggests a low right atrial pressure of 3 mm Hg. Pericardium/ Pleura There is no pericardial effusion. There is no pleural effusion. MMode/2D Measurements & Calculations LVIDd: 5.2 cm LVOT diam: 2.3 cm LVIDs: 3.5 cm Ao root diam: 3.7 cm FS: 33.6 % asc Aorta Diam: 3.7 cm EPSS: 0.84 cm Ao Arch Diam (Prox Trans): 3.3 cm IVSd: 0.85 cm LVPWd: 0.89 cm LV payne. diameter/BSA (cm/m^2): 2.6 LV sys. diameter/BSA (cm/m^2): 1.7 LA A2 area: 15.9 cm2 RA long axis: 5.2 cm LA A4 area: 12.1 cm2 RA area: 13.9 cm2 LA length (vol): 4.3 cm RA vol: 31.5 ml LA vol: 38.2 ml RA : 15.7 ml/m2 LA vol index: 19.1 ml/m2 IVC diam: 1.5 cm RVD1 (basal): 3.7 cm RVD2 (mid): 3.2 cm TAPSE: 1.9 cm Doppler Measurements & Calculations Ao V2 max: 115.7 cm/sec LVOT Max Jamari: 97.0 cm/sec Ao V2 mean: 74.1 cm/sec LV V1 max P.8 mmHg Ao max P.4 mmHg LV V1 VTI: 19.9 cm Ao mean P.6 mmHg ALISON(I,D): 3.7 cm2 Ao V2 VTI: 22.3 cm ALISON(V,D): 3.5 cm2 sev ratio: 0.89 ALISON indexed to BSA (cm^2/m^2): 1.8 AI P1/2t: 1012 msec AI dec slope: 103.8 cm/sec2 MV E max jamari: 59.0 cm/sec TR max jamari: 251.4 cm/sec MV A max jamari: 56.3 cm/sec TR max P.3 mmHg MV E/A: 1.0 PA V2 max: 88.3 cm/sec Med Peak E' Jamari: 5.6 cm/sec PA V2 mean: 64.0 cm/sec E/E' med: 10.6 PA mean P.8 mmHg Lat Peak E' Jamari: 7.4 cm/sec PA pr(Accel): 34.5 mmHg E/E' lat: 8.0 E/e' average: 9.3 MV dec time: 0.25 sec SV(LVOT): 82.3 ml Reading Physician:10:18 AM
--- NOTE | 2022-11-23 16:23 | P.HP_ITS ---
History of Present Illness History of Present Illness Date Patient Seen: 11/23/22 Time Patient Seen: 18:42 Chief complaint: Stroke Narrative: Maynor Barnes is an 82yo M with PMH of HTN, HLD, urinary retention due to BPH, elevated PSA s/p prostate biopsy, and hip replacement who presents with acute dizziness and L>R weakness. Patient was in the grocery store shopping when he bent over to pick something up and when becoming upright became immediately dizzy and nauseated. This continued so he came to the ED. He feels like his left side may be a bit weaker than his right. He also feels somewhat more unsteady on his feet. His vertigo is mainly positional, with any sudden movements of the head causing the room to spin. He is nauseous at the moment. Denies headache, CP, SOB, abd pain, dysuria, or diarrhea. [facility] Medical History Asymptomatic microscopic hematuria Bleeding external hemorrhoids Elevated PSA History of urinary retention HTN (hypertension) Hyperlipidemia Incomplete emptying of bladder Lower urinary tract symptoms Numbness Osteoarthritis of left hip Urinary retention Surgical History History of hip replacement History of prostate biopsy History of vasectomy Hx of hemorrhoidectomy Hx of thumb surgery Family History Father CAD (coronary artery disease) Hyperlipidemia Social History marital status: household members: spouse Smoking Status: Never smoker alcohol intake: current caffeine: Yes Type(s) of exercise: walking Meds Home Medications and Allergies Home Medications Medication Instructions Recorded Confirmed Type finasteride 5 mg tablet 5 mg PO DAILY #30 tabs 12/14/21 11/23/22 Rx tamsulosin 0.4 mg capsule 0.4 mg PO BEDTIME 11/23/22 11/23/22 History Allergies Allergy/AdvReac Type Severity Reaction Status Date / Time No Known Drug Allergies Allergy Verified 11/23/22 15:03 Review of Systems Review of Systems Narrative: All other systems reviewed with the patient and are negative unless otherwise stated. Exam Vital Signs (past 8 hours): - 11/23/22 14:45 11/23/22 15:00 11/23/22 15:15 Temperature 97.6 F Pulse Rate 79 76 69 Respiratory Rate 15 22 22 Blood Pressure 179/77 H 179/77 H 162/79 H Pulse Oximetry 99 99 98 Oxygen Delivery Method Room Air Room Air Room Air 11/23/22 15:20 11/23/22 15:25 11/23/22 15:30 Temperature Pulse Rate 68 68 64 Respiratory Rate 25 H 23 23 Blood Pressure 160/88 H 162/90 H 158/86 H Pulse Oximetry 98 98 99 Oxygen Delivery Method Room Air Room Air Room Air 11/23/22 15:35 11/23/22 15:40 Temperature Pulse Rate 63 64 Respiratory Rate 24 25 H Blood Pressure 169/88 H 159/86 H Pulse Oximetry 97 98 Oxygen Delivery Method Room Air Room Air Oxygen Delivery Method Room Air Narrative Exam Narrative: GEN: no acute distress, appears nauseated HEENT: moist mucous membranes, PERRL NECK: trachea midline, no JVD CV: regular rate and rhythm, no murmurs PULM: clear bilaterally ABD: soft, nontender, nondistended, no organomegaly EXT: warm and well perfused with no edema NEURO: awake, alert, oriented, no focal deficits Objective Labs 11/23/22 14:51 11/23/22 14:51 Labs: Laboratory Results - last 24 hr 11/23/22 11/23/22 11/23/22 14:51 14:51 14:51 WBC 6.1 RBC 4.58 Hgb 13.7 Hct 39.7 L MCV 86.6 MCH 29.9 MCHC 34.5 RDW 13.2 Plt Count 238 Neut % (Auto) 56.6 Lymph % (Auto) 31.5 [place] % (Auto) 10.9 Eos % (Auto) 0.5 L Baso % (Auto) 0.5 Neut # (Auto) 3500 Lymph # (Auto) 1900 [place] # (Auto) 700 Eos # (Auto) 0 Baso # (Auto) 0 PT 11.7 INR 1.0 APTT 30 Sodium 136 L Potassium 3.7 Chloride 101 Carbon Dioxide 24 BUN 19 Creatinine 0.93 Estimated GFR > 60 BUN/Creatinine Ratio 20.4 Glucose 99 Calcium 9.6 Total Bilirubin 0.7 AST 30 ALT 20 Alkaline Phosphatase 91 Total Creatine Kinase 103 Troponin I < 0.012 Total Protein 7.9 Albumin 4.6 Globulin 3.3 Albumin/Globulin Ratio 1.4 Ethyl Alcohol < 10 SARS-CoV-2 (PCR) 11/23/22 15:25 WBC RBC Hgb Hct MCV MCH MCHC RDW Plt Count Neut % (Auto) Lymph % (Auto) [place] % (Auto) Eos % (Auto) Baso % (Auto) Neut # (Auto) Lymph # (Auto) [place] # (Auto) Eos # (Auto) Baso # (Auto) PT INR APTT Sodium Potassium Chloride Carbon Dioxide BUN Creatinine Estimated GFR BUN/Creatinine Ratio Glucose Calcium Total Bilirubin AST ALT Alkaline Phosphatase Total Creatine Kinase Troponin I Total Protein Albumin Globulin Albumin/Globulin Ratio Ethyl Alcohol SARS-CoV-2 (PCR) Negative Assessment & Plan Assessment & Plan narrative: # questionable stroke with sudden-onset positional vertigo -presents with acute dizziness, left sided weakness. Likely BPPV given positional vertigo, but cannot rule out cerebellar stroke. 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 DVT prophylaxis with Lovenox. Proxy is Kareen. I have reviewed home meds and used all available resources to reconcile the home meds. This patient will be admitted as observation and will require less than 2 midnights of hospital time to treat stroke rule out.
[2022-11-23 16:50] LABS: Cholesterol 244 mg/dL (140-199); HDL Cholesterol 45 mg/dL (40-60); LDL Cholesterol Calculated 173 mg/dL (<100); Magnesium 1.9 mg/dL (1.6-2.3); Triglycerides 132 mg/dL (35-150)
[2022-11-23 16:52] LABS: Hemoglobin A1C% w Est Avg Glu 5.5 % (4.0-6.0)
[2022-11-23 17:20] LABS: TSH w/ Reflex to FT4 2.09 uIU/mL (0.47-4.68)
[2022-11-23] MEDS: ENOXAPARIN 40 MG/0.4 ML SYRINGE SUBCUT (17:23)
[2022-11-23] MEDS: ONDANSETRON 4 MG/2 ML INJ IV (17:24)
[2022-11-23 18:10] LABS: Appearance Urine UA CLEAR; Bilirubin Urine UA NEGATIVE (NEGATIVE); Color Urine UA YELLOW; Glucose Urine UA NEGATIVE (Negative); Ketones Urine UA 1+ (NEGATIVE); Leukocyte Esterase Urine UA NEGATIVE (NEGATIVE); Nitrite Urine UA NEGATIVE (Negative); Occult Blood Urine UA NEGATIVE (Negative); Protein Urine UA NEGATIVE (Negative); Urobilinogen Urine UA 0.2 E.U./dL (0.2)
[2022-11-23 18:21] LABS: Bacteria Urine None Seen; Culture Indicated Urine Cult Not Indicated; RBC Urine 0-1/HPF (0-5/HPF); Squamous Epithelial Cell Urine 0-1 /HPF (0-5/HPF); Ur Creatinine Normal (Normal); Ur Specific Gravity Normal (Normal); Urine pH Normal (Normal); WBC Urine 0-1/HPF (0-5/HPF)
[2022-11-23 18:22] LABS: UR Morphine/Opiate cutoff 300 Negative (Negative); Urine Amphetamines Negative (Negative); Urine Barbiturates Negative (Negative); Urine Benzodiazepines Negative (Negative); Urine Cocaine Negative (Negative); Urine MDMA Negative (Negative); Urine Methadone Negative (Negative); Urine Methamphetamines Negative (Negative); Urine Oxycodone Negative (Negative); Urine Phencyclidine Negative (Negative); Urine Tetrahydrocannabinol Negative (Negative); Urine Tricyclic Antidepressant Negative (Negative)
[2022-11-23] MEDS: ATORVASTATIN 20 MG TABLET 80 MG PO (21:41)
[2022-11-24 00:45] VITALS: BP 138/73; PULSE 72; RESP 17; TEMP 35.8; O2SAT 99
[2022-11-24 06:00] VITALS: BP 137/67; PULSE 56; RESP 16; TEMP 36.1; O2SAT 99
[2022-11-24 07:35] LABS: Add Manual Diff / Slide Review NO; Basophils Absolute Auto 0 /uL (0-100); Basophils Percent Auto 0.4 % (0-2); Eosinophils Absolute Auto 0 /uL (0-450); Eosinophils Percent Auto 0.7 % (2-4); Hemoglobin 13.4 g/dL (13.5-17.5); Lymphocytes Absolute Auto 1700 /uL (1100-4500); Mean Corpuscular HGB Conc 33.5 % (30-36); Mean Corpuscular Hemoglobin 29.3 PG (26-34); Mean Corpuscular Volume 87.5 fL (80-100); Monocytes Absolute Auto 700 /uL (0-900); Neutrophils Absolute Auto 3800 /uL (1500-7000); Neutrophils Percent Auto 60.9 % (50-75); Platelet Count 242 X10^3/uL (150-400); Red Blood Cell Count 4.57 X10^6/uL (4.5-5.9); Red Cell Distribution Width 13.3 % (11.6-14.8); White Blood Cell Count 6.2 X10^3/uL (4.5-11.0)
[2022-11-24 07:43] LABS: BUN Creatinine Ratio 17.6 (6-22); Blood Urea Nitrogen 18 mg/dL (9-20); Calcium 9.2 mg/dL (8.4-10.2); Carbon Dioxide 26 mmol/L (22-32); Chloride 104 mmol/L (98-107); Estimated Glomerular Filt Rate > 60 mL/min (>60); Glucose 89 mg/dL (80-110); HEMOLYSIS < 15 (0-50); Potassium 4.2 mmol/L (3.4-5.1); Sodium 137 mmol/L (137-145)
[2022-11-24 08:00] VITALS: BP 145/72; PULSE 56; RESP 17; TEMP 36.1; O2SAT 98
[2022-11-24] MEDS: levoFLOXacin 250 MG TABLET 750 MG PO (09:04)
[2022-11-24] MEDS: CLOPIDOGREL 75 MG TABLET PO (09:05)
[2022-11-24] MEDS: ENOXAPARIN 40 MG/0.4 ML SYRINGE SUBCUT (09:05)
[2022-11-24] MEDS: DOXYCYCLINE HYCLATE 100 MG TABLET PO ×2 (09:05→09:08)
[2022-11-24] MEDS: ASPIRIN EC 81 MG TABLET PO (09:05)
[2022-11-24 12:00] VITALS: BP 140/86; PULSE 63; RESP 17; TEMP 36.3; O2SAT 98
[2022-11-24] MEDS: predniSONE 20 MG TABLET 40 MG PO (12:09)
[2022-11-24] MEDS: ONDANSETRON 4 MG/2 ML INJ IV (12:18)
--- NOTE | 2022-11-24 12:26 | PT.IIE ---
Current Diagnoses Cerebral infarction, unspecified (11/23/22) Surgical History (Last Reviewed 11/23/22 @ 18:43 by Gabe Archer DO) History of hip replacement History of prostate biopsy History of vasectomy Hx of hemorrhoidectomy Hx of thumb surgery Medical History (Last Reviewed 11/23/22 @ 18:43 by Gabe Archer DO) Asymptomatic microscopic hematuria Bleeding external hemorrhoids Elevated PSA History of urinary retention HTN (hypertension) Hyperlipidemia Incomplete emptying of bladder Lower urinary tract symptoms Numbness Osteoarthritis of left hip Urinary retention Physical Therapy Inpatient Evaluation/Re-Eval M1 PT/OT-IP Prior Functional Status Start: 11/24/22 12:08 Freq: NEEDED Status: Active Protocol: Document 11/24/22 11:35 MB (Rec: 11/24/22 12:26 MB [id number]) Medical Review Prior Functional Status Medical History Reviewed Yes Diet/Fluid Consistency Regular Communication [place] Mobility and Gait Indepedent and has been caring for his who is recovering from hip fracture and wound care issues Activities of Daily Living and IADL's Independent Social History Household Members spouse Living Arrangements House Employment Status Retired Additional Social History Comment Pt reports has DME at home for who has w/c, walker, other needs s/p wounds and hip fracture. He was very I [employer]ING [employer]. M2 PT-IP Current Condition Start: 11/24/22 12:08 Freq: NEEDED Status: Active Protocol: Document 11/24/22 11:35 MB (Rec: 11/24/22 12:26 MB [id number]) Physical Therapy Current Condition Current Condition Evaluation Date 11/24/22 Treatment Diagnosis Acute onset dizziness with cervicogenic components, VOR hypofunction Onset Date 11/23/22 M3 PT-IP Subjective Start: 11/24/22 12:08 Freq: NEEDED Status: Active Protocol: Document 11/24/22 11:35 MB (Rec: 11/24/22 12:26 MB [id number]) Subjective Physical Therapy Visit Type Type Initial Evaluation Visit Start Time 11:35 Visit Stop Time 12:05 Total Visit Minutes 40 Number of [employer] DAY COORDINATOR Visits 0 Physical Therapy Visit Comments Patient Comments I'm better. I just have some stiffness in my neck and up my skull. Patient Questionnaires Patient Questionnaires PT asks pt several questions about his dizziness: he denies fall and recent whiplash, has no other changes in vision and strength is better, he did feel dizzy to the left. He has a history of hearing loss. He thinks he might have been dehydrated yesterday, that his neck felt stiff and may have overdone his band exercises but he does not typically have neck issues from these. He also feels his BP was up yesterday with his dizziness. Therapy Pain Assessment Pain When Pain Assessed At Rest Pain Present Pain Present Denied Pain M4 PT-IP Mobility and Gait Start: 11/24/22 12:08 Freq: NEEDED Status: Active Protocol: Document 11/24/22 11:35 MB (Rec: 11/24/22 12:26 MB [id number]) PT-Bed Mobility Assessment Rolling Level of Assist Independent Supine to Sit Supine to Sit Independent Sit to Supine Sit to Supine Independent Scooting Scooting to Edge of Bed Independent Scooting Up and Down in Bed Independent PT-Transfer Assessment Sit to and From Stand Sit to and from Stand Independent Equipment Transfer Assistive Device None Orthotic/Prosthetic Devices or Brace: No Comments Mobility Comments Pt moves well, even with Roll Test and B [place]-Hallpike Gait Assessment Gait Gait Assistance Required: Independent Distance (Feet) 100 Able to Maintain Weight Bearing Status Yes During Gait Assistive Devices Assistive Device None Orthotic/Prosthetic Devices or Brace: No Gait Deviations General Gait Pattern Within Normal Limits Comments Gait Comments Pt with neck stiffness with gentle head turns with gait and no reports of dizziness and no imbalance Stair Climbing Assessment Evaluation Level of Assist On Stairs Independent Devices Stair Climbing Assistive Devices None Technique/Endurance Stair Climbing Direction Ascend and Descend Stair Climbing Technique Step Over Step Number of Steps Climbed 3 Query Text: Stair Climbing Set # Repetitions (reps) 2 Comments Stair Climbing Comments Pt ascends and descends the three steps I without rail and with turning at the top of the steps without LOB PT-Balance Assessment Sitting Balance and Reactions Static Sitting Balance Ability Normal Dynamic Sitting Balance Ability Normal Standing Balance and Reactions Dynamic Standing Balance Ability Normal Comments Other Balance Tests/Deviations/Treatment Head turns with gait without : LOB and with c/o neck stiffness M5 PT-IP Objective Assessments Start: 11/24/22 12:08 Freq: NEEDED Status: Active Protocol: Document 11/24/22 11:35 MB (Rec: 11/24/22 12:26 MB [id number]) Orientation Orientation/Cognition Level of Alertness Alert Orientation Name,Age,Birthday,Month,Date, Year,Day of Week,Place, Situation Language Function Ability Hard of Hearing Safety Awareness Understands Safety Issues Memory Description No Deficits Noted Gross Range of Motion Upper Extremity ROM Assessment Within Functional Limits Lower Extremity ROM Assessment Within Functional Limits Strength Upper Extremity Strength Assessment Within Functional Limits Lower Extremity Strength Assessment Within Functional Limits Coordination Assessment Gross Coordination Gross Coordination WNL Assessment Finger to Nose Test Normal Performance Heel on Busby Test Normal Performance Sensation Assessment Sensation Gross Sensation WNL Muscle Tone Muscle Tone WNL Yes Other Assessments Other Other Assessments Orthostatic assessment with BP and HR in right UE: supine 153/85, 63; standing 159/93, 103; standing 1' 144/89, 68; standing 2' 137/88, 66; standing 3' 140/86, 63. No symptoms with orthostatic assessment. Cervical range is limited with active range in sitting: extension grossly 10 deg, flexion 40 deg, left rotation 30 deg and right rotation 35 deg. Oculomotor screen negative: eye ROM normal, no spontaneous nystagmus, saccadic eye movement normal. B VOR Head Thrust positive for hypofunction with more delay with thrusting to the right. B Roll Test and B [place]-Hallpike negative for dizziness and nystagmus. M6 PT-IP Treatment Start: 11/24/22 12:08 Freq: NEEDED Status: Active Protocol: Document 11/24/22 11:35 MB (Rec: 11/24/22 12:26 MB [id number]) Physical Therapy Treatment Education Education Provided Safety Brace Education Patient Other Treatments Other Treatment Performed PT ed pt in benefits of OPPT to address neck tension/ cervicogengic components to symptoms, VOR hypofunction and to review his UE band exercises that may be contributing to his neck symptoms. Ed pt in risk of stroke and to make sure to call EMS again if he has sudden onset of dizziness and nausea. M7 PT-IP Assessment and Plan Start: 11/24/22 12:08 Freq: NEEDED Status: Active Protocol: Document 11/24/22 11:35 MB (Rec: 11/24/22 12:26 MB [id number]) PT Summary Assessment and Plan Potential Rehabilitation Potential Excellent Status of Condition at Evaluation Stable Summary Progress Towards Goals Goals Met Assessment Summary Pt is a pleasant 82 y/o male presenting with only c/o neck stiffness and stiffness at the back of his skull today. PT checks orthostatics, oculomotor screen, VOR, BPPV, balance, coordination, strength and neck ROM. The only positive findings are decreased neck range and reports of stiffness and VOR hypofunction. He may benefit from OPPT to address posture and VOR. Findings this adm did include right thyroid nodule and CRISTIAN mass that is small and of unknown meaning. He also had mastoiditis on diagnostics . PT's findings today do not explain a sudden onset of acute dizziness yesterday when bending over and he reported imbalance, light-headedness and dizziness to the left. If he was orthostatic yesterday, he is clear today. Similarly, left-sided weakness is gone. Frequency of Treatment Frequency Of Treatment Discharge Weight Bearing Status Weight Bearing Status Weight Bear as Tolerated Recommendations To Nursing Amount of Assist Needed Independent Discharge Recommendations PT Discharge Recommendations Home with Assistance Transportation Needs at Discharge Private Vehicle
--- NOTE | 2022-11-24 13:12 | OT.IPNOTE ---
Ot eval and treat received. Chart reviewed. Went to see pt and pt is up walking around in the room without AD. Pt is dressed and states that he feels like he is at his baseline for ADLs. Will discharge OT eval and treat order.
--- NOTE | 2022-12-02 07:45 | PM.DS.1 ---
History of Present Illness History of Present Illness Chief complaint: Stroke Narrative: Maynor Barnes is an 82yo M with PMH of HTN, HLD, urinary retention due to BPH, elevated PSA s/p prostate biopsy, and hip replacement who presents with acute dizziness and L>R weakness. Patient was in the grocery store shopping when he bent over to pick something up and when becoming upright became immediately dizzy and nauseated. This continued so he came to the ED. He feels like his left side may be a bit weaker than his right. He also feels somewhat more unsteady on his feet. His vertigo is mainly positional, with any sudden movements of the head causing the room to spin. He is nauseous at the moment. Denies headache, CP, SOB, abd pain, dysuria, or diarrhea. Discharge Providers Provider Date of admission: 11/23/22 16:06 Discharge Date: 11/24/22 Primary care physician: Chau Damon MD Consults: 11/23/22 16:16 Consult to Occupational Therapy Evaluate & Treat Comment: Physician Instructions: Evaluate and treat Consult to Physical Therapy Evaluate & Treat Comment: Physician Instructions: Evaluate and Treat Discharge provider: Gabe Archer, DO Summary Hospital Course Discharge Diagnosis: #?questionable stroke with sudden-onset positional vertigo -presents with acute dizziness, left sided weakness. Likely BPPV given positional vertigo, but cannot rule out cerebellar stroke. 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 Telestroke rec DAPT x21 days. Underwent stroke workup which was negative. MRI brain however showed left-sided mastoiditis. Placed on 10 days of po abx. Vestibular PT worked with patient and rec ongoing outpatient PT. Had very high LDL and high BP so put on lipitor and losartan. Exam Vital Signs (past 8 hours): Oxygen Delivery Method Room Air Oxygen Flow Rate 0 Narrative Exam Narrative: GEN: no acute distress HEENT: moist mucous membranes, PERRL NECK: trachea midline, no JVD CV: regular rate and rhythm, no murmurs PULM: clear bilaterally ABD: soft, nontender, nondistended, no organomegaly EXT: warm and well perfused with no edema NEURO: awake, alert, oriented, no focal deficits Objective Labs 11/24/22 06:15 11/24/22 06:15 [facility] Medical History Asymptomatic microscopic hematuria Bleeding external hemorrhoids Elevated PSA History of urinary retention HTN (hypertension) Hyperlipidemia Incomplete emptying of bladder Lower urinary tract symptoms Numbness Osteoarthritis of left hip Urinary retention Surgical History History of hip replacement History of prostate biopsy History of vasectomy Hx of hemorrhoidectomy Hx of thumb surgery Family History Father CAD (coronary artery disease) Hyperlipidemia Social History marital status: household members: spouse Smoking Status: Never smoker alcohol intake: current caffeine: Yes Type(s) of exercise: walking Discharge Plan Discharge Plan Patient Disposition: Home Discharge orders & Medications Prescriptions: New aspirin 81 mg Tablet,Delayed Release (Dr/Ec) 81 mg PO DAILY Qty: 90 0RF atorvastatin 40 mg tablet 40 mg PO BEDTIME Qty: 90 0RF clopidogrel 75 mg Tablet 75 mg PO DAILY 19 Days Qty: 19 0RF doxycycline hyclate 100 mg Tablet 100 mg PO BID 10 Days Qty: 20 0RF levofloxacin 750 mg tablet 750 mg PO 0700 10 Days Qty: 10 0RF losartan 25 mg tablet 25 mg PO DAILY Qty: 90 0RF Continued tamsulosin 0.4 mg capsule 0.4 mg PO BEDTIME finasteride 5 mg tablet 5 mg PO DAILY Qty: 30 12RF Follow up/Referrals: Chau Damon MD [Primary Care Provider] - 2 Weeks Other Ambulatory Orders: Referral to: (Schedule) Timeframe: 1 Week Facility: [facility] - Location: Outpatient Physical Therapy Ordered By: Gabe Archer Referral to: (Schedule) Timeframe: 1 Week Location: Determined by Patient Ordered By: Salvatore Valdivia Visit Report/Discharge Packet Instructions: DI for Vertigo Stand Alone Forms: Patient Portal/API, Stroke Signs & Symptoms Discharge Data Primary Care Provider: Chau Damon Attending Provider: Gabe Archer Admit Date/Time: 11/23/22 16:06 Discharges patient from system. Discharge Date/Time: 11/24/22 13:40 Quality VTE Deep Vein Thrombosis/Pulmonary Embolism Present on Admission: No
== END 2022-11-24 13:40 | disposition home or self-care (01) ==
LOC: ED 16:07 → AC 11-24 06:26
PROVIDERS: Admitting Provider Student in an Organized Health Care Education/Training Program; Emergency Provider Emergency Medicine; PCP Family Medicine; Referring Provider Emergency Medicine; Visit Provider Student in an Organized Health Care Education/Training Program
DX: R42 Dizziness and giddiness (principal); R29.701 NIHSS score 1; R91.8 Other nonspecific abnormal finding of lung field; I10 Essential (primary) hypertension; E78.5 Hyperlipidemia, unspecified; N40.1 Benign prostatic hyperplasia with lower urinary tract symptoms; R33.8 Other retention of urine
CPT/HCPCS: 36415; 70450; 70496; 70498; 70551; 71260; 80048; 80053; 80061; 80305; 80320; 81001; 82550; 82962; 83036; 83735; 84443; 84484; 85025; 85610; 85730; 87635; 93005; 93306; 96361; 96372; 96374; 96376; 97161; 99285; C9803; G0378; Q3014; J1650; J2405; Q9967

== ENCOUNTER 2022-12-15 13:45 | Outpatient (RCR) | payer MEDICARE, SELFPAY ==
[2022-11-23 17:39] VITALS: BMI 27.3
--- NOTE | 2022-12-01 14:33 | PT.OIE ---
Current Diagnoses Benign paroxysmal vertigo, unspecified ear (12/01/22) Past Medical History (Last Reviewed 11/23/22 @ 18:43 by Gabe Archer DO) Asymptomatic microscopic hematuria Bleeding external hemorrhoids Elevated PSA History of urinary retention HTN (hypertension) Hyperlipidemia Incomplete emptying of bladder Lower urinary tract symptoms Numbness Osteoarthritis of left hip Urinary retention Past Surgical History (Last Reviewed 11/23/22 @ 18:43 by Gabe Archer DO) History of hip replacement History of prostate biopsy History of vasectomy Hx of hemorrhoidectomy Hx of thumb surgery Visit Care Team Role Provider Type Gabe Archer DO Physician Specialty: Internal Medicine Address: [address] [place] [address], [id number] Email: [email or web address] Referring Provider Physician Specialty: Internal Medicine Address: [address] [place] [address], [facility] Email: [email or web address] Damon MD Attending Provider Physician Family Provider Primary Care Provider Specialty: Family Practice Address: [address] [place] [address], [id number] Email: [email or web address] Physical Therapy Initial Evaluation PT-OP-A Visit Information Start: 12/01/22 13:24 Freq: Status: Active Protocol: Document 12/01/22 13:30 MB (Rec: 12/01/22 14:33 [id number]) Out-Patient Physical Therapy Visit Information Visit Information Visit Type Initial Evaluation Visit Start Time 13:30 Visit Stop Time 14:15 Total Visit Minutes 45 Visit Number 1 Number of NETWORK CONTROL OPERATOR Visits 0 PT-OP-B Current Condition Start: 12/01/22 13:24 Freq: Status: Active Protocol: Document 12/01/22 13:30 MB (Rec: 12/01/22 14:33 [id number]) Current Condition History of Current Condition Onset Date 11/23/22 Current Complaints Pt has had no more dizziness. He con't with a stiff neck sometimes. History of Current Condition Pt with recent hospitalization and d/c on 11/24/22 after sudden onset of dizziness that he described as light- headedness to the left, nausea and neck stiffness. Diagnostics revealed right thyroid nodule and CRISTIAN mass that is small and of unknown meaning. He was also found to have mastoiditis. PT could not determine a functional cause of sudden onset of dizziness. Orthostatics, oculomotor screen, VOR, BPPV, balance, coordination, strength and neck range were all tested and the only positive findings were cervical discomfort and limited range as well as B VOR hypofunction. Pt reports a history of right ear ringing more than left ear. He is [place] and states he is more [place] in the right ear. Pt does theraband strengthening exercises for his UEs and it is possible that these could increase tension in his cervical spine and PT will address these in future treatments. Pt states that on 11/23/22, he thinks he was dehydrated. He does report some allergies and drainage this year. Pt does have some trouble sleeping and occ has kicking and such when sleeping. He tries not to sleep on his left side because his is towards his left and he does not want to kick her. He is trying different pillows. Pt has felt occasional imbalance and feels like he has to work on it. He works on his balance in the trails in [place]. Treatment Goals Patient/Caregiver Goals To find out what made him dizzy. PT-OP-C Subjective Start: 12/01/22 13:24 Freq: Status: Active Protocol: Document 12/01/22 13:30 MB (Rec: 12/01/22 14:33 MB [id number]) OP-PT Subjective Patient Comments Patient Comments See history of current condition Patient Reported Progress Improving PT-OP-D Balance Start: 12/01/22 13:24 Freq: Status: Active Protocol: Document 12/01/22 13:30 MB (Rec: 12/01/22 14:33 MB [id number]) Balance Tests Other Other Balance Tests Performed FGA tasks all normal including gait speed, changing gait speed, turning head right and left and up and down with gait , tandem, backwards gait and gait with eyes closed. Turn pivot also better. PT-OP-J Posture/Palpation/Skin Start: 12/01/22 13:24 Freq: Status: Active Protocol: Document 12/01/22 13:30 MB (Rec: 12/01/22 14:33 MB [id number]) Posture Evaluation Comments Posture Comments Forward head, rounded shoulders, left tragus 2 in front of left AC joint, right upper thoracic convexity and left lower thoracic convexity and left iliac crest mildly higher than the right. PT-OP-K Range of Motion Start: 12/01/22 13:24 Freq: Status: Active Protocol: Document 12/01/22 13:30 MB (Rec: 12/01/22 14:33 MB [id number]) Cervical Spine Range of Motion Cervical Spine Active Testing Position Standing Flexion 35 Extension 25 Rotation Left 30 Rotation Right 30 Lateral Flexion Left 15 Lateral Flexion Right 15 Comments End-range SB does have rotatory component Shoulder Goniometric Range of Motion Shoulder Left Testing Position Standing Flexion 150 Abduction 150 Right Testing Position Standing Flexion 160 Abduction 160 PT-OP-M Strength Start: 12/01/22 13:24 Freq: Status: Active Protocol: Document 12/01/22 13:30 MB (Rec: 12/01/22 14:33 MB [id number]) Shoulder Strength Shoulder Manual Muscle Testing Left Flexion 5 Normal Abduction (C5) 5 Normal External Rotation 5 Normal Internal Rotation 5 Normal Right Flexion 5 Normal Abduction (C5) 5 Normal External Rotation 5 Normal Internal Rotation 5 Normal PT-OP-O Vestibular Start: 12/01/22 13:26 Freq: Status: Active Protocol: Document 12/01/22 13:30 MB (Rec: 12/01/22 14:33 MB [id number]) Vestibular Assessment Visual Testing Smooth Pursuits Horizontal Normal Smooth Pursuits Vertical Normal Saccades Horizontal Normal Saccades Vertical Normal Gaze Evoked Nystagmus With Fixation Negative Thrust Head Positive Bilateral Convergence Test WNL Spontaneous Nystagmus Negative Vestibular Function Tests mCTSIB Position 1 Romberg normal mCTSIB Position 2 Romberg EC normal mCTSIB Position 3 Romberg on unsteady surface requires MOHEL to get into position mCTSIB Position 4 Pt has increased sway with Romberg with EC standing on unsteady surface Comments Vestibular Comments Did not check orthostatics or for BPPV d/t pt does not have anymore dizziness. Bigger delay with right thrust for VOR testing. B finger to nose normal. PT-OP-Q Treatments Start: 12/01/22 13:24 Freq: Status: Active Protocol: Document 12/01/22 13:30 MB (Rec: 12/01/22 14:33 MB [id number]) Therapeutic Exercises Standing Exercises Racquet ball massage Side bilateral Comments Ed pt in ball placement, moving side to side, pulsing in and out, ROM PT-OP-T Assessment and Plan Start: 12/01/22 13:24 Freq: Status: Active Protocol: Document 12/01/22 13:30 MB (Rec: 12/01/22 14:33 MB [id number]) Physical Therapy Assessment Rehab Potential Rehabilitation Potential Good Goals 2 Impairment C/o neck stiffness Chcf Goal (LTG) Pt will report an 85% improvement in neck stiffness to improve functional movement with driving and exercises as well as tracking with gait. LTG Duration 4 weeks 1 Impairment Lacks vestibular and postural HEP Sales And Marketing Director Goal (LTG) Pt will perform progressive HEP for posture, cervical and thoracic flexibility, strengthening, balance and VOR with I. LTG Duration 4 weeks Assessment Summary Assessment Pt is a pleasant 82 y/o male presenting with no more reports of dizziness and ongoing c/o neck stiffness and occ trouble with his balance. Pt presents with B VOR hypofunction with greater delay of corrective saccade with right thrust. He presents with decreased cervical range , postural changes, increased neck stiffness and popping with ROM testing. Pt has normal dynamic balance with Functional Gait Assessment tasks and has more sway with static balance testing. Pt will benefit from several PT treatments to review his shoulder exercises and modify, add thoracic mobility, VOR and balance exercises to his home routine. Recommend audiology visit to check his hearing and possible ENT referral d/t mastoiditis found during hospitalization and pt reporting experiencing allergies this season. Physical Therapy Plan Frequency and Duration Frequency of Treatment 1x/Week Duration of treatment (weeks) 4 Plan of Care Start Date 12/01/22 Plan of Care End Date 01/01/23 Therapeutic Interventions Therapeutic Interventions Balance Training,Home Exercise Program,Joint Mobilizations, Manual Therapy,Neuromuscular Re-education,Patient/Caregiver Education,Self-Care/Home Management,Soft Tissue Mobilization,Taping, Therapeutic Exercises, Vestibular Rehabilitation Other Referrals/Consults Referrals/Consults Recommended Recommend referral to audiology for hearing test Next Visit Focus/Plan Next Note Type Treatment Note Next Visit Plan Assess pt's theraband exercises and consider changing to perform over foam roller, assess VOR with DVA test and provide exercise, provide static balance exercise
--- NOTE | 2022-12-01 14:33 | PT.OPPOC ---
Physical, Occupational & Speech Therapy At [facility] Current Diagnoses Benign paroxysmal vertigo, unspecified ear (12/01/22) Visit Care Team Role Provider Type Gabe Archer DO Physician Specialty: Internal Medicine Address: [address] [place] [address], [id number] Email: [email or web address] DO Referring Provider Physician Specialty: Internal Medicine Address: [address] [place] [address], [id number] Email: [email or web address] Chau Damon MD Attending Provider Physician Family Provider Primary Care Provider Specialty: Family Practice Address: [address] [place] [address], [id number] Email: [email or web address] Plan Of Care PT-OP-T Assessment and Plan Start: 12/01/22 13:24 Freq: Status: Active Protocol: Document 12/01/22 13:30 MB (Rec: 12/01/22 14:33 MB [id number]) Physical Therapy Assessment Rehab Potential Rehabilitation Potential Good Goals 2 Impairment C/o neck stiffness Graphic Design Professor Goal (LTG) Pt will report an 85% improvement in neck stiffness to improve functional movement with driving and exercises as well as tracking with gait. LTG Duration 4 weeks 1 Impairment Lacks vestibular and postural HEP Senior Care Goal (LTG) Pt will perform progressive HEP for posture, cervical and thoracic flexibility, strengthening, balance and VOR with I. LTG Duration 4 weeks Assessment Summary Assessment Pt is a pleasant 82 y/o male presenting with no more reports of dizziness and ongoing c/o neck stiffness and occ trouble with his balance. Pt presents with B VOR hypofunction with greater delay of corrective saccade with right thrust. He presents with decreased cervical range , postural changes, increased neck stiffness and popping with ROM testing. Pt has normal dynamic balance with Functional Gait Assessment tasks and has more sway with static balance testing. Pt will benefit from several PT treatments to review his shoulder exercises and modify, add thoracic mobility, VOR and balance exercises to his home routine. Recommend audiology visit to check his hearing and possible ENT referral d/t mastoiditis found during hospitalization and pt reporting experiencing allergies this season. Physical Therapy Plan Frequency and Duration Frequency of Treatment 1x/Week Duration of treatment (weeks) 4 Plan of Care Start Date 12/01/22 Plan of Care End Date 01/01/23 Therapeutic Interventions Therapeutic Interventions Balance Training,Home Exercise Program,Joint Mobilizations, Manual Therapy,Neuromuscular Re-education,Patient/Caregiver Education,Self-Care/Home Management,Soft Tissue Mobilization,Taping, Therapeutic Exercises, Vestibular Rehabilitation Other Referrals/Consults Referrals/Consults Recommended Recommend referral to audiology for hearing test Next Visit Focus/Plan Next Note Type Treatment Note Next Visit Plan Assess pt's theraband exercises and consider changing to perform over foam roller, assess VOR with DVA test and provide exercise, provide static balance exercise Plan of Care Dates Plan of Care Start Date 12/01/22 Plan of Care End Date 01/01/23 Electronically Signed by: Doreen Amaya, PT 12/01/22 9738 If you are in agreement with this Plan of Care, please return a signed and dated copy. I have reviewed this Plan of Care and certify that the skilled therapy services above are required to meet the patient?s needs. Physician Signature Date Printed Name and Credentials Clinical Instructor Signature Printed Name and Credentials
--- NOTE | 2022-12-06 15:19 | PT.OTN ---
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 He con't with a stiff neck sometimes. History of Current Condition Pt with recent hospitalization and d/c on 11/24/22 after sudden onset of dizziness that he described as light- headedness to the left, nausea and neck stiffness. Diagnostics revealed right thyroid nodule and CRISTIAN mass that is small and of unknown meaning. He was also found to have mastoiditis. PT could not determine a functional cause of sudden onset of dizziness. Orthostatics, oculomotor screen, VOR, BPPV, balance, coordination, strength and neck range were all tested and the only positive findings were cervical discomfort and limited range as well as B VOR hypofunction. Pt reports a history of right ear ringing more than left ear. He is [place] and states he is more [place] in the right ear. Pt does theraband strengthening exercises for his UEs and it is possible that these could increase tension in his cervical spine and PT will address these in future treatments. Pt states that on 11/23/22, he thinks he was dehydrated. He does report some allergies and drainage this year. Pt does have some trouble sleeping and occ has kicking and such when sleeping. He tries not to sleep on his left side because his is towards his left and he does not want to kick her. He is trying different pillows. Pt has felt occasional imbalance and feels like he has to work on it. He works on his balance in the [employer] in [place]. Treatment Goals Patient/Caregiver Goals To find out what made him dizzy. PT-OP-C Subjective Start: 12/01/22 13:24 Freq: Status: Active Protocol: Document 12/06/22 14:31 MB (Rec: 12/06/22 15:19 MB [id number]) OP-PT Subjective Patient Comments Patient Comments Pt states he is doing fine. PT-OP-D Balance Start: 12/01/22 13:24 Freq: Status: Active Protocol: Document 12/01/22 13:30 MB (Rec: 12/01/22 14:33 MB [id number]) Balance Tests Other Other Balance Tests Performed FGA tasks all normal including gait speed, changing gait speed, turning head right and left and up and down with gait , tandem, backwards gait and gait with eyes closed. Turn pivot also better. PT-OP-J Posture/Palpation/Skin Start: 12/01/22 13:24 Freq: Status: Active Protocol: Document 12/01/22 13:30 MB (Rec: 12/01/22 14:33 MB [id number]) Posture Evaluation Comments Posture Comments Forward head, rounded shoulders, left tragus 2 in front of left AC joint, right upper thoracic convexity and left lower thoracic convexity and left iliac crest mildly higher than the right. PT-OP-K Range of Motion Start: 12/01/22 13:24 Freq: Status: Active Protocol: Document 12/01/22 13:30 MB (Rec: 12/01/22 14:33 MB [id number]) Cervical Spine Range of Motion Cervical Spine Active Testing Position Standing Flexion 35 Extension 25 Rotation Left 30 Rotation Right 30 Lateral Flexion Left 15 Lateral Flexion Right 15 Comments End-range SB does have rotatory component Shoulder Goniometric Range of Motion Shoulder Left Testing Position Standing Flexion 150 Abduction 150 Right Testing Position Standing Flexion 160 Abduction 160 PT-OP-M Strength Start: 12/01/22 13:24 Freq: Status: Active Protocol: Document 12/01/22 13:30 MB (Rec: 12/01/22 14:33 MB [id number]) Shoulder Strength Shoulder Manual Muscle Testing Left Flexion 5 Normal Abduction (C5) 5 Normal External Rotation 5 Normal Internal Rotation 5 Normal Right Flexion 5 Normal Abduction (C5) 5 Normal External Rotation 5 Normal Internal Rotation 5 Normal PT-OP-O Vestibular Start: 12/01/22 13:26 Freq: Status: Active Protocol: Document 12/01/22 13:30 MB (Rec: 08/25/23 14:33 MB [id number]) Vestibular Assessment Visual Testing Smooth Pursuits Horizontal Normal Smooth Pursuits Vertical Normal Saccades Horizontal Normal Saccades Vertical Normal Gaze Evoked Nystagmus With Fixation Negative Thrust Head Positive Bilateral Convergence Test WNL Spontaneous Nystagmus Negative Vestibular Function Tests mCTSIB Position 1 Romberg normal mCTSIB Position 2 Romberg EC normal mCTSIB Position 3 Romberg on unsteady surface requires TRAFFIC SUPERINTENDENT to get into position mCTSIB Position 4 Pt has increased sway with Romberg with EC standing on unsteady surface Comments Vestibular Comments Did not check orthostatics or for BPPV d/t pt does not have anymore dizziness. Bigger delay with right thrust for VOR testing. B finger to nose normal. PT-OP-Q Treatments Start: 12/01/22 13:24 Freq: Status: Active Protocol: Document 12/06/22 14:31 MB (Rec: 12/06/22 15:19 MB [id number]) Therapeutic Exercises Standing Exercises Upper traps STM with racquet ball Comments Racquet ball at upper traps TrP and then turn head away, leaning wall edge Standing tube exercises Standing Exercise Name Pt demonstrates tube exercises , biceps and triceps Comments Ed pt to try against the wall Racquet ball massage Side bilateral Comments Re-ed pt in ball placement, moving side to side, pulsing in and out, ROM Other Exercises UE strengthening over foam roller Resistance Blue non-latex band for strengthening Comments ER with elbows at side, horizontal abd, flexion and then triceps with loop Thoracic rolling Comments T position thoracic rolling over 6 foam roller, pt has trouble with this Push ups Other Exercise Name Modified push-ups on log Comments Pt performs over raised plinth , good form, ed to keep neck loose PT-OP-T Assessment and Plan Start: 12/01/22 13:24 Freq: Status: Active Protocol: Document 12/06/22 14:31 MB (Rec: 12/06/22 15:19 MB [id number]) Physical Therapy Assessment Goals 2 Impairment C/o neck stiffness Spinning Room Worker Goal (LTG) Pt will report an 85% improvement in neck stiffness to improve functional movement with driving and exercises as well as tracking with gait. LTG Duration 4 weeks 1 Impairment Lacks vestibular and postural HEP Care Home Goal (LTG) Pt will perform progressive HEP for posture, cervical and thoracic flexibility, strengthening, balance and VOR with I. LTG Duration 4 weeks Assessment Summary Assessment Reviewed pt's tube exercises today and created a theraband strengthening program over the foam roller to assist with posture, thoracic mobility and unweighting his neck. Pt tolerates well and pt provides handouts today. Physical Therapy Plan Frequency and Duration Frequency of Treatment 1x/Week Duration of treatment (weeks) 4 Plan of Care Start Date 12/01/22 Plan of Care End Date 01/01/23 Therapeutic Interventions Therapeutic Interventions Balance Training,Home Exercise Program,Joint Mobilizations, Manual Therapy,Neuromuscular Re-education,Patient/Caregiver Education,Self-Care/Home Management,Soft Tissue Mobilization,Taping, Therapeutic Exercises, Vestibular Rehabilitation Other Referrals/Consults Referrals/Consults Recommended Recommend referral to audiology for hearing test Next Visit Focus/Plan Next Note Type Treatment Note Next Visit Plan Assess VOR with DVA test and provide exercise, provide static balance exercise
--- NOTE | 2022-12-15 14:37 | PT.OTN ---
Current Diagnoses Benign paroxysmal vertigo, unspecified ear (12/15/22) Physical Therapy Treatment Note PT-OP-A Visit Information Start: 12/01/22 13:24 Freq: Status: Active Protocol: Document 12/15/22 13:45 MB (Rec: 12/15/22 14:35 MB [id number]) Out-Patient Physical Therapy Visit Information Visit Information Visit Type Treatment Note Visit Start Time 13:45 Visit Stop Time 14:30 Total Visit Minutes 45 Visit Number 3 PT-OP-B Current Condition Start: 12/01/22 13:24 Freq: Status: Active Protocol: Document 12/01/22 13:30 MB (Rec: 12/01/22 14:33 MB [id number]) Current Condition History of Current Condition Onset Date 11/23/22 Current Complaints Pt has had no more dizziness. He con't with a stiff neck sometimes. History of Current Condition Pt with recent hospitalization and d/c on 11/24/22 after sudden onset of dizziness that he described as light- headedness to the left, nausea and neck stiffness. Diagnostics revealed right thyroid nodule and CRISTIAN mass that is small and of unknown meaning. He was also found to have mastoiditis. PT could not determine a functional cause of sudden onset of dizziness. Orthostatics, oculomotor screen, VOR, BPPV, balance, coordination, strength and neck range were all tested and the only positive findings were cervical discomfort and limited range as well as B VOR hypofunction. Pt reports a history of right ear ringing more than left ear. He is [place] and states he is more [place] in the right ear. Pt does theraband strengthening exercises for his UEs and it is possible that these could increase tension in his cervical spine and PT will address these in future treatments. Pt states that on 11/23/22, he thinks he was dehydrated. He does report some allergies and drainage this year. Pt does have some trouble sleeping and occ has kicking and such when sleeping. He tries not to sleep on his left side because his is towards his left and he does not want to kick her. He is trying different pillows. Pt has felt occasional imbalance and feels like he has to work on it. He works on his balance in the [employer] in [place]. Treatment Goals Patient/Caregiver Goals To find out what made him dizzy. PT-OP-C Subjective Start: 12/01/22 13:24 Freq: Status: Active Protocol: Document 12/15/22 13:45 MB (Rec: 12/15/22 14:35 MB [id number]) OP-PT Subjective Patient Comments Patient Comments Pt states that he feels great. He did not get the foam roller yet. He got the ball massager and is working on his neck. He is concerned about his who has PNA and is having trouble breathing. Pt reports at least an 85% improvement in neck stiffness since starting PT. PT-OP-D Balance Start: 12/01/22 13:24 Freq: Status: Active Protocol: Document 12/01/22 13:30 MB (Rec: 12/01/22 14:33 MB [id number]) Balance Tests Other Other Balance Tests Performed FGA tasks all normal including gait speed, changing gait speed, turning head right and left and up and down with gait , tandem, backwards gait and gait with eyes closed. Turn pivot also better. PT-OP-J Posture/Palpation/Skin Start: 12/01/22 13:24 Freq: Status: Active Protocol: Document 12/01/22 13:30 MB (Rec: 12/01/22 14:33 MB [id number]) Posture Evaluation Comments Posture Comments Forward head, rounded shoulders, left tragus 2 in front of left AC joint, right upper thoracic convexity and left lower thoracic convexity and left iliac crest mildly higher than the right. PT-OP-K Range of Motion Start: 12/01/22 13:24 Freq: Status: Active Protocol: Document 12/01/22 13:30 MB (Rec: 12/01/22 14:33 MB [id number]) Cervical Spine Range of Motion Cervical Spine Active Testing Position Standing Flexion 35 Extension 25 Rotation Left 30 Rotation Right 30 Lateral Flexion Left 15 Lateral Flexion Right 15 Comments End-range SB does have rotatory component Shoulder Goniometric Range of Motion Shoulder Left Testing Position Standing Flexion 150 Abduction 150 Right Testing Position Standing Flexion 160 Abduction 160 PT-OP-M Strength Start: 12/01/22 13:24 Freq: Status: Active Protocol: Document 12/01/22 13:30 MB (Rec: 12/01/22 14:33 MB [id number]) Shoulder Strength Shoulder Manual Muscle Testing Left Flexion 5 Normal Abduction (C5) 5 Normal External Rotation 5 Normal Internal Rotation 5 Normal Right Flexion 5 Normal Abduction (C5) 5 Normal External Rotation 5 Normal Internal Rotation 5 Normal PT-OP-O Vestibular Start: 12/01/22 13:26 Freq: Status: Active Protocol: Document 12/01/22 13:30 MB (Rec: 12/01/22 14:33 MB [id number]) Vestibular Assessment Visual Testing Smooth Pursuits Horizontal Normal Smooth Pursuits Vertical Normal Saccades Horizontal Normal Saccades Vertical Normal Gaze Evoked Nystagmus With Fixation Negative Thrust Head Positive Bilateral Convergence Test WNL Spontaneous Nystagmus Negative Vestibular Function Tests mCTSIB Position 1 Romberg normal mCTSIB Position 2 Romberg EC normal mCTSIB Position 3 Romberg on unsteady surface requires PEER SUPPORT SPECIALIST to get into position mCTSIB Position 4 Pt has increased sway with Romberg with EC standing on unsteady surface Comments Vestibular Comments Did not check orthostatics or for BPPV d/t pt does not have anymore dizziness. Bigger delay with right thrust for VOR testing. B finger to nose normal. PT-OP-Q Treatments Start: 12/01/22 13:24 Freq: Status: Active Protocol: Document 12/15/22 13:45 MB (Rec: 12/15/22 14:35 MB [id number]) Therapeutic Exercises Other Exercises Pect stretch over foam roller Comments Pt does better with this today , tries various position UE strengthening over foam roller Resistance Level 2 band Reps/Minutes 3-10 reps to review all exercises Comments ER with elbows at side, horizontal abd, flexion and then triceps with loop Thoracic rolling Comments T position thoracic rolling over 6 foam roller, pt has trouble with this Neuro Re-Education Treatment Balance Activities Standing balance exercise Comments Tandem standing for 2' right foot front and then left foot front, focus on E on eye chart after vestibular VOR exercise. Cues to challenge his balance and not to soften knees. Pt will perform on both feet for 2' each at home after eye chart exercise. Vestibular Rehabilitation DVA exercise Comments Small eye chart given to go home for exercise: pt can read in standing 10', all letters clear. Picked E on row one up from the bottom: 1' horizontal head turns, quick speed and small amplitude. Feet are apart. Next Romberg position: this is a better exercise and will work up to 2 ' at home. Performed neck flexion and extension for vertical movement with feet apart. Pt understands cues to keep letter clear and movement of head small and quick. Neck control is harder with flexion and extension. Vertical nods with feet together more challenging and will be exercise for home for 2'. DVA testing/VOR testing Comments Pt has greater than 4 line distance between standard eye chart reading with head still and reading with vertical head nods. He has at least two line distance with horizontal head turns. PT-OP-T Assessment and Plan Start: 12/01/22 13:24 Freq: Status: Active Protocol: Document 12/15/22 13:45 MB (Rec: 12/15/22 14:35 MB [id number]) Physical Therapy Assessment Goals 2 Impairment C/o neck stiffness Half-Way Goal (LTG) Pt will report an 85% improvement in neck stiffness to improve functional movement with driving and exercises as well as tracking with gait. Pt reports at least an 85% improvement in neck stiffness. LTG Duration Met 1 Impairment Lacks vestibular and postural HEP Singing Messenger Goal (LTG) Pt will perform progressive HEP for posture, cervical and thoracic flexibility, strengthening, balance and VOR with I. 12/15/22 Pt will con't to perform exercises given by PT. LTG Duration Met Assessment Summary Assessment Pt is feeling a lot better and reports understanding his HEP . He has balance, VOR and postural exercises. He is concerned about leaving his at home because she is ill Will d/c PT today. Physical Therapy Plan Discharge Physical Therapy Discharge Reasons Goals Met
== END 2022-12-20 09:47 ==
LOC: PHYS 13:45
PROVIDERS: Absent Provider Student in an Organized Health Care Education/Training Program; Family Provider Family Medicine; PCP Family Medicine; Referring Provider Internal Medicine; Visit Provider Family Medicine
DX: H81.10 Benign paroxysmal vertigo, unspecified ear (principal)
CPT/HCPCS: 97110; 97112; 97161

== ENCOUNTER → 2023-01-01 11:48 | Outpatient (CLI) | payer MEDICARE, SELFPAY ==
[2022-11-23 17:39] VITALS: BMI 27.3
--- NOTE | 2023-01-01 11:51 | DI.CT.S_ITS ---
PROCEDURE: CT CHEST WO CON INDICATIONS: Evaluate lung mass TECHNIQUE: Noncontrast 5 mm thick sections acquired from the pulmonary apices to the posterior costophrenic angles. 1 mm lung window, 5 mm thick coronal and sagittal and 7 mm axial MIP reformats were then acquired. For radiation dose reduction, the following was used: automated exposure control, adjustment of mA and/or kV according to patient size. COMPARISON: [facility], CT, CT CHEST W CON, 11/23/2022, 16:47. [facility], MR, MR HEAD/BRAIN WO CON, 11/23/2022, 19:26. FINDINGS: Image quality: Excellent. Lungs and pleura: Stable branching lesion in the left upper lobe apex bronchus, with oligemia in the affected segment. New tree-in-bud nodules in the dependent right upper lobe. Stable calcified granuloma. New atelectasis in the lingula, with patchy mucous plugging. Mediastinum: Heart size is normal. No pericardial effusion. No mediastinal adenopathy by size criteria. Thoracic aorta and central pulmonary arteries are normal in size. Esophagus is normal in caliber. No hiatal hernia. Extensive coronary calcifications. Calcified hilar and mediastinal nodes. Bones and chest wall: No suspicious bony lesions. No vertebral body compression fractures. No axillary or supraclavicular adenopathy by size criteria. Thyroid gland contains a 3 cm nodule on the right . Stable subcutaneous nodule posterior to the midthoracic spine, probably an epidermal inclusion cyst. Abdomen: Visualized upper abdominal solid organs and bowel loops appear normal in the absence of contrast. IMPRESSION: Stable branching lesion in the left upper lobe apex bronchus. Differential remains a mucous plug, ABPA, less likely malignancy. Endobronchial biopsy can be considered. New tree-in-bud nodules in the dependent right upper lobe. Differential includes infectious/inflammatory bronchitis or aspiration. Correlate with risk factors of aspiration. Speech pathology consult can be considered. Stable right thyroid nodule measuring 3 cm. Consider thyroid ultrasound, per ACR consensus guidelines. Dictated by: Omar Bowden M.D. on 01/01/2023 at 14:36 Approved by: Omar Bowden M.D. on 01/01/2023 at 14:51
== END ==
PROVIDERS: Family Provider Family Medicine; PCP Family Medicine; Referring Provider Internal Medicine Critical Care Medicine; Visit Provider Internal Medicine Critical Care Medicine
DX: R91.8 Other nonspecific abnormal finding of lung field (principal); E04.1 Nontoxic single thyroid nodule
CPT/HCPCS: 71250

== ENCOUNTER → 2023-03-12 11:11 | Outpatient (CLI) | payer MEDICARE, SELFPAY ==
[2022-11-23 17:39] VITALS: BMI 27.3
[2023-03-12 12:19] LABS: Alanine Aminotransferase 22 IU/L (<50); Albumin 4.5 g/dL (3.5-5.0); Albumin Globulin Ratio 1.3 (1.0-2.8); Alkaline Phosphatase 79 U/L (38-126); Aspartate Aminotransferase 29 IU/L (17-59); BUN Creatinine Ratio 17.6 (6-22); Bilirubin Total 0.7 mg/dL (0.2-1.3); Blood Urea Nitrogen 16 mg/dL (9-20); Calcium 9.6 mg/dL (8.4-10.2); Carbon Dioxide 27 mmol/L (22-32); Chloride 102 mmol/L (98-107); Cholesterol 226 mg/dL (140-199); Estimated Glomerular Filt Rate > 60 mL/min (>60); Globulin 3.5 g/dL (1.7-4.1); Glucose 98 mg/dL (80-110); HDL Cholesterol 41 mg/dL (40-60); HEMOLYSIS < 15 (0-50); LDL Cholesterol Calculated 159 mg/dL (<100); Potassium 4.7 mmol/L (3.4-5.1); Sodium 136 mmol/L (137-145); Triglycerides 130 mg/dL (35-150)
== END ==
PROVIDERS: Family Provider Family Medicine; PCP Family Medicine; Referring Provider Family Medicine; Visit Provider Family Medicine
DX: E78.5 Hyperlipidemia, unspecified (principal); I10 Essential (primary) hypertension; R91.8 Other nonspecific abnormal finding of lung field
CPT/HCPCS: 36415; 80053; 80061

== ENCOUNTER → 2023-04-30 16:52 | Outpatient (CLI) | payer MEDICARE, SELFPAY ==
[2022-11-23 17:39] VITALS: BMI 27.3
--- NOTE | 2023-04-30 16:53 | DI.US.S_ITS ---
PROCEDURE: US THYROID INDICATIONS: Thyroid nodule TECHNIQUE: Real-time scanning was performed of the thyroid gland, with image documentation. COMPARISON: [facility], CT, CT CHEST WO CON, 01/01/2023, 12:22. FINDINGS: Right: Thyroid lobe measures 5.7 x 3.1 x 3.3 cm, and is homogeneous in echotexture. Left: Thyroid lobe measures 5.6 x 1.8 x 2 cm, and is homogenous in echotexture. Isthmus: 0.7 cm thick. Dominant right thyroid nodule is seen measuring 3.5 x 3.8 x 2.6 cm. This is predominantly solid and hypoechoic. Small cystic areas are present. Moderately suspicious. TR 4. Overall heterogeneous appearance of the thyroid parenchyma overall. No enlarged lymph nodes by size criteria on ultrasound. IMPRESSION: Moderately suspicious dominant right thyroid nodule corresponding to CT abnormality. FNA is recommended. Overall heterogeneous appearance of the thyroid parenchyma, possibly sequelae of prior thyroiditis. ACR TI-RADS definitions and recommendations: TI-RADS 1 (benign): 0 points. FNA not needed. TI-RADS 2 (not suspicious): 2 points. FNA not needed. TI-RADS 3 (mildly suspicious): 3 points. * FNA if 2.5 cm or larger, follow up if 1.5 cm or larger (at 1, 3, and 5 years). TI-RADS 4 (moderately suspicious): 4-6 points. * FNA if 1.5 cm or larger, follow up if 1 cm or larger (at 1, 2, 3, and 5 years). TI-RADS 5 (highly suspicious): 7 points or more. * FNA if 1 cm or larger, follow up if 0.5 cm or larger (every year for 5 years). Dictated by: Ryan Bill M.D. on 05/01/2023 at 11:17 Approved by: Ryan Bill M.D. on 05/01/2023 at 11:19
== END ==
PROVIDERS: Family Provider Family Medicine; PCP Family Medicine; Referring Provider Family Medicine; Visit Provider Family Medicine
DX: E04.1 Nontoxic single thyroid nodule (principal)
CPT/HCPCS: 76536

== ENCOUNTER → 2023-05-02 09:38 | Outpatient (CLI) | payer MEDICARE, SELFPAY ==
[2022-11-23 17:39] VITALS: BMI 27.3
[2023-05-02 11:26] LABS: Add Manual Diff / Slide Review NO; Basophils Absolute Auto 0 /uL (0-100); Basophils Percent Auto 0.5 % (0-2); Eosinophils Absolute Auto 100 /uL (0-450); Eosinophils Percent Auto 1.3 % (2-4); Hematocrit 41.8 % (41-53); Hemoglobin 14.1 g/dL (13.5-17.5); Lymphocytes Absolute Auto 1300 /uL (1100-4500); Mean Corpuscular HGB Conc 33.8 % (30-36); Mean Corpuscular Hemoglobin 29.7 PG (26-34); Mean Corpuscular Volume 87.8 fL (80-100); Monocytes Absolute Auto 500 /uL (0-900); Monocytes Percent Auto 9.7 % (3-14); Neutrophils Absolute Auto 3400 /uL (1500-7000); Neutrophils Percent Auto 64.5 % (50-75); Platelet Count 246 X10^3/uL (150-400); Red Blood Cell Count 4.76 X10^6/uL (4.5-5.9); Red Cell Distribution Width 13.2 % (11.6-14.8); White Blood Cell Count 5.2 X10^3/uL (4.5-11.0)
[2023-05-02 11:41] LABS: Alanine Aminotransferase 32 IU/L (<50); Albumin 4.6 g/dL (3.5-5.0); Albumin Globulin Ratio 1.3 (1.0-2.8); Alkaline Phosphatase 75 U/L (38-126); Aspartate Aminotransferase 36 IU/L (17-59); BUN Creatinine Ratio 19.4 (6-22); Bilirubin Total 0.7 mg/dL (0.2-1.3); Blood Urea Nitrogen 18 mg/dL (9-20); Calcium 9.5 mg/dL (8.4-10.2); Carbon Dioxide 30 mmol/L (22-32); Chloride 102 mmol/L (98-107); Cholesterol 157 mg/dL (140-199); Estimated Glomerular Filt Rate > 60 mL/min (>60); Globulin 3.5 g/dL (1.7-4.1); Glucose 94 mg/dL (80-110); HDL Cholesterol 39 mg/dL (40-60); HEMOLYSIS < 15 (0-50); LDL Cholesterol Calculated 94 mg/dL (<100); Potassium 4.6 mmol/L (3.4-5.1); Sodium 138 mmol/L (137-145); Total Protein 8.1 g/dL (6.3-8.2); Triglycerides 121 mg/dL (35-150)
[2023-05-02 12:21] LABS: Creatinine Urine Random 104.9 mg/dL
[2023-05-02 12:26] LABS: Microalbumin Urine Random 2.1 mg/dL (0-1.6)
[2023-05-03 03:58] LABS: Apolipoprotein B 71 mg/dL (<90)
[2023-05-03 17:43] LABS: Hep C Virus Ab w/Reflex Quant NEGATIVE s/c (NEGATIVE)
[2023-05-05 03:20] LABS: Lipoprotein (a) 8.9 nmol/L (<75.0)
[2023-05-05 07:32] LABS: PSA, Total 6.5 ng/mL (0.0-4.0)
== END ==
PROVIDERS: Family Provider Family Medicine; PCP Family Medicine; Referring Provider Urology; Visit Provider Urology
DX: E78.5 Hyperlipidemia, unspecified (principal); I10 Essential (primary) hypertension; E04.1 Nontoxic single thyroid nodule; R97.20 Elevated prostate specific antigen [PSA]
CPT/HCPCS: 36415; 80053; 80061; 82043; 82172; 82570; 83695; 84153; 84154; 85025; 86803

== ENCOUNTER → 2023-05-11 08:45 | Outpatient (CLI) | payer MEDICARE, SELFPAY ==
[2022-11-23 17:39] VITALS: BMI 27.3
--- NOTE | 2023-05-11 | PATH_ITS ---
Note [facility] Accession Number: [id number] TESTS RESULT FLAG UNITS REF RANGE LAB Clinician Provided Cytology Information No. of containers..02 Previously Prepared Cytology Slide 35 Unknown Storage/container code(s) Source: RIGHT THYROID MID-INFERIOR NODULE #1 DIAGNOSIS: RIGHT THYROID MID-INFERIOR NODULE #1 INCONCLUSIVE. [place] CATEGORY III. ATYPIA OF UNDETERMINED SIGNIFICANCE. COMMENT: Overall, not too cellular. Some groups show overlapping nuclei, mild nuclear size variation/enlargement, rare possible pseudoinclusions. Dr. Gan (cytopathologist) also reviewed this smear and concurs with the interpretation. Pathologist ICD10: R89.6 Signed out by: Lisa Gonzalez MD, Pathologist NPI- [id number] Performed by: Waldo Brar, Orange Picker ([facility]) Gross description: 30 CC, RED, CLEAR RECIEVED: IN CYTOLYT WITH 6 ALCOHOL FIXED AND 6 QUICK STAINED SLIDES ALSO 1 RNA VIAL WILL ON 01-19-2025.VO /VDU 05/14/2023 0900 Local FLAG LEGEND: L-Low Normal,H-High Normal,LL-Alert Low,HH-Alert High <-Panic Low,>-Panic High,A-Abnormal,AA-Critical Abnormal Performed at: 01 =Z [facility] [address] [place] [address] [address] [facility], [place] [address] John Handley MD, Performed at: [address] [place] [address], [place], [place] [id number] MD John Handley MD Phone: [phone]
--- NOTE | 2023-05-11 08:46 | DI.US.S_ITS ---
PROCEDURE: US FINE NEEDLE ASPIRATION INDICATIONS: Right thyroid nodule TECHNIQUE: The indications, alternatives, benefits, risks, and complications of the procedure were explained to the patient. Written informed consent was obtained and placed in the chart. The thyroid region was examined sonographically and a site was chosen for ultrasound guided percutaneous sampling. The skin was prepared and draped in the usual fashion, and anesthetized with 1% lidocaine infiltrated from the skin down to the thyroid gland. Multiple passes were then performed, with contents emptied into an appropriate pathology specimen container. A bandage was applied to the area of access at completion of the study. COMPARISON: [facility], CT, CT CHEST WO CON, 01/01/2023, 12:22. [facility], US, US THYROID, 04/30/2023, 17:01. FINDINGS: Location(s) of lesion(s) sampled: Right inferior nodule [place]: 25 gauge hypodermic needles. Number of passes: 6 Medications: 1% lidocaine for local anaesthesia. Complications: None. IMPRESSION: 1. Successful ultrasound-guided thyroid nodule fine needle aspiration, with cytology results pending. The nodule is hypervascular. The preliminary on-site cytology evaluation showed no visible thyroid cells in all samples. Please see chart below for management recommendations based on cytology results. If clinically indicated, a thyroid scintigraphy may be helpful. Consider a repeat biopsy attempt or a short-term follow-up ultrasound in 6 months. [facility] ReportingRecommendationsNon-diagnostic* Repeat US-guided FNA, with on-site cytology evaluation if possible. * Repeated non-diagnostic nodules without high suspicion US features: close observation vs surgical consult. * Consider surgery if nodule has high suspicion US features, grows >20% in 2 dimensions on followup, or patient has clinical risk factors for malignancy. Benign* If nodule has high suspicion US features: repeat US and FNA within 12 months. * If nodule has low to intermediate suspicion US features: repeat US at 12-24 months. If nodule grows (20% increase in at least 2 dimensions, with minimal increase of 2 mm or >50% change in volume), or development of new suspicious US features, then repeat FNA or continue followup. * If nodule has very low suspicion US features: followup US at >24 months. Atypia of undetermined significance, follicular lesion of undetermined significanceRepeat FNA, molecular testing, followup US, or surgical consult.Follicular neoplasm, suspicious for follicular neoplasmSurgical consult; also consider molecular testing. Suspicious for malignancySurgical consult.MalignantSurgical consult. Dictated by: Marvin Mike M.D. on 05/11/2023 at 10:38 Approved by: Marvin Mike M.D. on 05/11/2023 at 10:48
== END ==
PROVIDERS: Family Provider Family Medicine; PCP Family Medicine; Referring Provider Family Medicine; Visit Provider Family Medicine
DX: E04.1 Nontoxic single thyroid nodule (principal)
CPT/HCPCS: 10005

== ENCOUNTER → 2023-06-26 12:41 | Outpatient (CLI) | payer MEDICARE, SELFPAY ==
[2022-11-23 17:39] VITALS: BMI 27.3
--- NOTE | 2023-06-26 12:44 | DI.CT.S_ITS ---
PROCEDURE: CT CHEST WO CON INDICATIONS: follow up lung nodule TECHNIQUE: Noncontrast 2.0-2.5 mm thick sections acquired from the pulmonary apices to the posterior costophrenic angles. 7 mm thick axial MIP and 5 mm coronal and sagittal reformats were then acquired. For radiation dose reduction, the following was used: automated exposure control, adjustment of mA and/or kV according to patient size. COMPARISON: [facility], CT, CT CHEST WO [facility], 01/01/2023, 12:22. FINDINGS: Image quality: Diagnostic. Lower Neck: No enlarged lymph nodes. Thyroid: 3 cm right thyroid nodule again identified. Axillae: No enlarged lymph nodes. Chest Wall: Unremarkable. Bones: Unremarkable. Lungs and Pleura: No pneumothorax or pleural effusions. Previously identified tree in bud opacities in the right lung have resolved.. Branching lesion in the left upper lobe appears unchanged in size. Improved aeration of the previously identified lingular consolidation. Calcified granuloma of the mediastinum, and right upper lobe again noted. 7 mm nodule in the right middle lobe appears unchanged (6/65 and 3/150) Heart: Heart size is normal. No pericardial effusion. Thoracic Vessels: The aorta and pulmonary arteries demonstrate normal size. Mediastinum and Etta: No enlarged lymph nodes. Esophagus: No wall thickening. No hiatal hernia. Upper Abdomen: Visualized upper abdomen solid organs and bowel loops appear normal. IMPRESSION: 1. Interval resolution of tree-in-bud opacities otherwise no change including a branching lesion in the left upper lung and 7 mm nodule in the right middle lobe. 2. Differential diagnosis of the branching lesion in the left lung remains mucus plug, ABPA, malignancy. If not already done so, endobronchial biopsy may be considered. 3. Recommend follow-up CT of chest of the 7 mm right middle lobe lesion in 18-24 months. Fleischner Society criteria for SOLID lung nodule followup. Nodule size (mm)Low-risk patientHigh-risk patient<6 (single or multiple)No routine followup.Optional CT at 12 months. 6-8 (single or multiple)CT at 6-12 months, then optional CT at 18-24 mo.CT at 6-12 months, then CT at 18-24 months. >8 (single)CT at 3 months, PET-CT, or biopsy. Same as for low-risk pts. >8 (multiple)CT at 3-6 months, then optional CT at 18-24 mo.CT at 3-6 months, then CT at 18-24 months. Fleischner Society criteria for SUB-SOLID lung nodule followup. Solitary pure ground-glass nodules<6 mm (ground glass or part solid)No followup needed. 6 mm or larger (ground glass)CT at 6-12 months to confirm persistence, then CT every 2 years until 5 years.6 mm or larger (part solid)CT at 3-6 months to confirm persistence, then annual CT until 5 years if unchanged and solid component remains <6 mm. Multiple sub-solid nodules<6 mmCT at 3-6 months, then CT consider at 2 & 4 years for high risk patients. [address] at 3-6 months. Subsequent management based on most suspicious lesions. Recommendations do not apply to lung cancer screening, patients with immunosuppression, or patients with known primary cancer. Dictated by: Wu Garcia M.D. on 06/26/2023 at 16:40 Approved by: Wu Garcia M.D. on 06/26/2023 at 17:00
== END ==
LOC: CT 12:42
PROVIDERS: Family Provider Family Medicine; PCP Family Medicine; Referring Provider Family Medicine; Visit Provider Family Medicine
DX: R91.8 Other nonspecific abnormal finding of lung field (principal); E04.1 Nontoxic single thyroid nodule
CPT/HCPCS: 71250

== ENCOUNTER → 2023-08-20 12:26 | Outpatient (CLI) | payer MEDICARE, SELFPAY ==
[2022-11-23 17:39] VITALS: BMI 27.3
[2023-08-21 08:45] LABS: PSA Free % 23.2 % (.); PSA, Total 12.4 ng/mL (0.0-4.0)
== END ==
PROVIDERS: Family Provider Family Medicine; PCP Family Medicine; Referring Provider Urology; Visit Provider Urology
DX: R97.20 Elevated prostate specific antigen [PSA] (principal)
CPT/HCPCS: 36415; 84153; 84154

== ENCOUNTER → 2023-11-14 08:26 | Outpatient (CLI) | payer MEDICARE, SELFPAY ==
[2022-11-23 17:39] VITALS: BMI 27.3
== END ==
PROVIDERS: Family Provider Family Medicine; PCP Family Medicine; Referring Provider Urology; Visit Provider Urology
DX: R97.20 Elevated prostate specific antigen [PSA] (principal)
CPT/HCPCS: 36415; 84153; 84154

== ENCOUNTER → 2024-08-20 15:30 | Outpatient (CLI) | payer MEDICARE, SELFPAY ==
[2022-11-23 17:39] VITALS: BMI 27.3
[2024-08-22 08:11] LABS: PSA Free % 22.5 % (.); PSA, Total 16.9 ng/mL (0.0-4.0)
== END ==
PROVIDERS: Family Provider Family Medicine; PCP Family Medicine; Referring Provider Urology; Visit Provider Urology
DX: R97.20 Elevated prostate specific antigen [PSA] (principal)
CPT/HCPCS: 36415; 84153; 84154

== ENCOUNTER → 2024-10-28 08:42 | Outpatient (CLI) | payer MEDICARE, SELFPAY ==
[2022-11-23 17:39] VITALS: BMI 27.3
[2024-10-28 09:19] LABS: Add Manual Diff / Slide Review NO; Hematocrit 39.9 % (41-53); Hemoglobin 13.7 g/dL (13.5-17.5); Lymphocytes Absolute Auto 1200 /uL (1100-4500); Mean Corpuscular HGB Conc 34.4 % (30-36); Mean Corpuscular Hemoglobin 30.2 PG (26-34); Mean Corpuscular Volume 87.8 fL (80-100); Platelet Count 238 X10^3/uL (150-400)
[2024-10-28 09:42] LABS: Alanine Aminotransferase 27 IU/L (<50); Albumin 4.6 g/dL (3.5-5.0); Albumin Globulin Ratio 1.5 (1.0-2.8); Alkaline Phosphatase 88 U/L (38-126); Blood Urea Nitrogen 15 mg/dL (9-20); Calcium 9.3 mg/dL (8.4-10.2); Carbon Dioxide 26 mmol/L (22-32); Chloride 103 mmol/L (98-107); Cholesterol 153 mg/dL (140-199); Estimated Glomerular Filt Rate > 60 mL/min (>60); Globulin 3.0 g/dL (1.7-4.1); Glucose 93 mg/dL (70-99); HDL Cholesterol 41 mg/dL (40-60); HEMOLYSIS < 15 (0-50); Potassium 4.3 mmol/L (3.4-5.1); Sodium 138 mmol/L (137-145); Total Protein 7.6 g/dL (6.3-8.2); Triglycerides 73 mg/dL (35-150)
[2024-10-28 10:12] LABS: TSH w/ Reflex to FT4 1.37 uIU/mL (0.47-4.68)
== END ==
PROVIDERS: Family Provider Family Medicine; PCP Family Medicine; Referring Provider Family Medicine; Visit Provider Urology
DX: I10 Essential (primary) hypertension (principal); Z12.5 Encounter for screening for malignant neoplasm of prostate; R97.20 Elevated prostate specific antigen [PSA]; R91.8 Other nonspecific abnormal finding of lung field; E78.5 Hyperlipidemia, unspecified
CPT/HCPCS: 36415; 80053; 80061; 84153; 84154; 84443; 85025; G0103

== ENCOUNTER → 2024-11-06 09:30 | Outpatient (CLI) | payer MEDICARE, SELFPAY ==
[2022-11-23 17:39] VITALS: BMI 27.3
== END ==
PROVIDERS: Family Provider Family Medicine; PCP Family Medicine; Visit Provider Urology
DX: R39.9 Unspecified symptoms and signs involving the genitourinary system (principal); R97.20 Elevated prostate specific antigen [PSA]; N40.1 Benign prostatic hyperplasia with lower urinary tract symptoms; Z68.26 Body mass index [BMI] 26.0-26.9, adult
CPT/HCPCS: 51798; 81002; 87086; 99214